=== PATIENT | female | born 1980 | race African-American/Black ===

== ENCOUNTER 2024-07-26 12:45 | Outpatient (CLI) | payer OTHER, SELFPAY ==
--- NOTE | 2024-07-26 13:00 | ECG_ITS ---
Test Date: 2024-07-26 13:03:51 Measurements Intervals [place] Rate: 95 P: 44 RI: 170 QRS: 9 QRSD: 90 T: 47 QT: 335 QTc: 421 Interpretive Statements SINUS RHYTHM BORDERLINE R WAVE PROGRESSION, ANTERIOR LEADS CONSIDER INFERIOR INFARCT, AGE INDETERMINATE BASELINE ARTIFACT- I, II, III, AVR, AVL, AVF ABNORMAL ECG No previous ECG available for comparison Electronically Signed On 07-26-2024 13:15:15 CORPORATE COMPLIANCE DIRECTOR by Quinton Arshad D.O.
--- OUTSIDE RECORDS SUMMARY | 2024-07-26 13:00 | XMS_ITS | Patient Health Summary ---
Author Organization [facility] Address [address] [place] [address] Care Team Providers Care Electronics Engineering Manager Name Role Phone Mel Cohen MD Primary Care Provider [phone] Note from [facility],non-owned Affiliates and Associated Physician Practices is amultiple site organization consisting of ambulatory clinics and hospital sitesin [place], [place]. This disclosure is being madepursuant to the Care Everywhere program and may not contain all information available regarding this patient. Last updated 18.[facility] Allergies No known active allergies Medications * Be aware that medications may not be up to date on this document. Alwaysverify current medications with the patient. * ferrous sulfate 325 (65 FE) MG tablet Take 1 (one) tablet by mouth once daily * ARIPiprazole (Abilify) 5 MG tablet Take 1 (one) tablet by mouth once daily * atorvastatin (Lipitor) 20 MG tablet Take 1 (one) tablet by mouth at bedtime * amLODIPine-benazepril (Lotrel) 10-20 MG capsule Take 1 (one) capsule by mouth once daily * montelukast (Singulair) 10 MG tablet Take 1 (one) tablet by mouth at bedtime * metFORMIN (Glucophage) 500 MG tablet Take 1 (one) tablet by mouth 2 times daily with morning and evening meal Social History Tobacco Use Types Packs/Day Years Used Date Smoking Tobacco: Never Smokeless Tobacco: Never Tobacco Cessation:Counseling Given: Not Answered Alcohol Use Standard Drinks/Week Comments Not Currently 0 (1 standard drink = 0.6 oz pur e alcohol) Sex and Gender Information Value Date Recorded Sex Assigned at Not on file Gender Identity Not on file Sexual Orientation Not on file Last Filed Vital Signs Vital Sign Reading Time Taken Comments Blood Pressure 145/102 06/24/2024 11:30 AM GALLERY OR MUSEUM GUIDE Pulse 83 06/24/2024 11:30 AM GALLERY OR MUSEUM GUIDE Temperature 37 C (98.6 F) 06/24/2024 9:55 AM GALLERY OR MUSEUM GUIDE Respiratory Rate 23 06/24/2024 11:30 AM GALLERY OR MUSEUM GUIDE Oxygen Saturation 97% 06/24/2024 11:30 AM GALLERY OR MUSEUM GUIDE Inhaled Oxygen Concentration - - Weight 97.5 kg (215 lb) 06/24/2024 9:55 AM GALLERY OR MUSEUM GUIDE Height 157.5 cm (5' 2 ) 06/24/2024 9:55 AM GALLERY OR MUSEUM GUIDE Body Mass Index 39.32 06/24/2024 9:55 AM GALLERY OR MUSEUM GUIDE Procedures * HCG URINE QUAL POCT NOTIFICATION(Performed 06/24/2024) Performed for Preop examination * [place] COLONOSCOPY, DIAGNOSTIC(Performed 06/24/2024) Performed for Screen for colon cancer * HCG URINE QUALITATIVE - POCT (IP) INTERFACED(Performed 06/24/2024) * ENDOSCOPY, COLON, SCREENING(Performed 06/24/2024) Results * HCG URINE QUAL POCT NOTIFICATION (06/24/2024 11:00 AM GALLERY OR MUSEUM GUIDE) Comment Notification Label Only - See Separate Report 06/24/2024 11:00 AM GALLERY OR MUSEUM GUIDE [facility] Urine URINE / Unknown 9:42 AM GALLERY OR MUSEUM GUIDE Francisco Alvarado MD LAB - URINALYSIS ORD ERABLES Performing Organization Address City/[facility] Co de Phone Number [facility] [address] [place] [address] * HCG URINE QUALITATIVE - POCT (IP) INTERFACED (06/24/2024 9:47 AM GALLERY OR MUSEUM GUIDE) HCG Qual Urine Negative Negative 06/24/2024 9:53 AM GALLERY OR MUSEUM GUIDE [facility] Urine URINE / Unknown 06/24/2024 9 :47 AM GALLERY OR MUSEUM GUIDE 06/24/2024 9:53 AM GALLERY OR MUSEUM GUIDE Francisco Alvarado MD LAB - POINT OF CARE ORDERABLES [facility] [address] [place] [address] * Endoscopy, Colon, Screening (06/24/2024 7:46 AM GALLERY OR MUSEUM GUIDE) Report Endoscopy POC _ Patient Name: Erica Mora Procedure Date: 06/24/2024 7:46 AM Date of : 1980 Admit Type: Outpatient Age: 43 Gender: Female Ethnicity: Not or Race: Black or Attending MD: Francisco Alvarado MD, [id number] _ Procedure: Colonoscopy Indications: Screening for colorectal malignant neoplasm, This is the patient's first colonoscopy Providers: Francisco Alvarado MD (Doctor), Danica Rausch RN, Jazmyn Restrepo RN Referring MD: Mariagnel Lagos DO (Referring MD) Medicines: Monitored Anesthesia Care Complications: No immediate complications. Estimated blood loss: None. _ Estimated Blood Loss: Estimated blood loss: none. Procedure: After I obtained informed consent, the scope was passed under direct vision. Throughout the procedure, the patient's blood pressure, pulse, and oxygen saturations were monitored continuously. The Colonoscope was introduced through the anus and advanced to the terminal ileum. The colonoscopy was performed without difficulty. The patient tolerated the procedure well. The quality of the bowel preparation was excellent. The terminal ileum, ileocecal valve, appendiceal orifice, and rectum were photographed. Impression: - No specimens collected. Moderate Sedation: Moderate (conscious) sedation was personally administered by an anesthesia professional. The following parameters were monitored: oxygen saturation, heart rate, blood pressure, respiratory rate, EKG, adequacy of pulmonary ventilation, and response to care. Findings: The terminal ileum appeared normal. The entire examined colon appeared normal. _ Recommendation: - Patient has a contact number available for emergencies. The signs and symptoms of potential delayed complications were discussed with the patient. Return to normal activities tomorrow. Written discharge instructions were provided to the patient. - Resume previous diet. - Continue present medications. - Repeat colonoscopy in 10 years for screening purposes. Procedure Code(s): --- Professional --- 23677, Colonoscopy, flexible; diagnostic, including collection of specimen(s) by brushing or washing, when performed (separate procedure) --- Technical --- 12283, Colonoscopy, flexible; diagnostic, including collection of specimen(s) by brushing or washing, when performed (separate procedure) Diagnosis Code(s): --- Professional --- Z12.11, Encounter for screening for malignant neoplasm of colon --- Technical --- Z12.11, Encounter for screening for malignant neoplasm of colon CPT copyright 2020 [employer]. All rights reserved. The codes documented in this report are preliminary and upon optical worker review may be revised to meet current compliance requirements. Francisco Alvarado MD 06/24/2024 11:15:03 AM This report has been signed electronically. Number of Addenda: 0 Note Initiated On: 06/24/2024 7:46 AM [facility] 06/24/2024 7:46 AM GALLERY OR MUSEUM GUIDE Francisco Alvarado MD GI PROCEDURE ORDERAB LES [facility] Care Teams Electronics Engineering Manager Relationship Specialty Start Date End Date Mel Cohen MD [address] [place] [id number] PCP - General Family Medicine 08/02/12
--- OUTSIDE RECORDS SUMMARY | 2024-07-26 13:00 | XMS_ITS | Clinical Summary ---
Author Organization [facility] Address [address] [place] [address] Care Team Providers Care Licensed Massage Therapist Name Role Phone Mariangel Lagos DO Primary Care Provide r Allergies No known active allergies Medications ferrous sulfate 325 mg (65 mg of elemental iron) tabletIndicatio ns:Iron Deficiency Anemia Take 1 tablet (325 mg total) by mouth daily with breakfast Active amLODIPine (NORVASC) 10 mg tablet Take 1 tablet (10 mg total) by mouth every morning Active ARIPiprazole (ABILIFY) 5 mg tablet Take 1 tablet (5 mg total) by mouth daily Active atorvastatin (LIPITOR) 20 mg tablet Take 1 tablet (20 mg total) by mouth nightly Active albuterol HFA (PROVENTIL HFA,VENTOLIN HFA,PROAIR HFA) 90 mcg/actuation inhaler Inhale 2 puffs every 6 (six) hours as needed for wheezing or shortness of breath Active budesonide-form oteroL (SYMBICORT) 160-4.5 mcg/actuation inhaler Inhale 2 puffs 2 (two) times a day Rinse mouth with water after use. Do not swallow. 1 each 3 Active Additional Information Patient not taking.Reported on 08/25/2023 guaiFENesin ER (MUCINEX) 600 mg 12 hr tablet Take 1 tablet (600 mg total) by mouth 2 (two) times a day 60 tablet 11 3 Active Additional Information Patient not taking.Reported on 12/14/2023 montelukast (SINGULAIR) 10 mg tablet Take 1 tablet (10 mg total) by mouth nightly for 28 doses 28 tablet [address] (PROTONIX) 40 mg EC tabletIndicatio ns:Stress Ulcer Prophylaxis Take 1 tablet (40 mg total) by mouth daily 30 tablet 11 3 Active Additional Information Patient not taking.Reported on 08/25/2023 famotidine (PEPCID) 20 mg tabletIndicatio ns:Heartburn Prevention,Refl ux Esophagitis,gas troesophageal reflux disease Take 1 tablet (20 mg total) by mouth nightly as needed for heartburn 30 tablet 3 Active Additional Information Patient not taking.Reported on 12/14/2023 albuterol 2.5 mg /3 mL (0.083 %) nebulizer solution Take 3 mL (2.5 mg total) by nebulization every 6 (six) hours as needed for wheezing or shortness of breath 300 mL 3 3 Active Additional Information Patient not taking.Reported on 12/14/2023 [employer] Aerosol Delivery System device as directed 3 Active predniSONE (DELTASONE) 20 mg tablet 3 Active metFORMIN (GLUCOPHAGE) 500 mg tablet Take 1 tablet (500 mg total) by mouth Active Active Problems Patient Care Coordination No te Formatting of this note migh t be different from the original. c Problem Noted Date Diagnosed Date Obstructive sleep apnea 08/25/2023 Assessment & Plan (06/28/2024 10:42 AM REPAIRER SWITCHGEAR): Patient continue to wear CPAP in auto titrating range 5-13 cm water pressure while sleeping. Her DME is [facility] home care. I have sent an order over for new CPAP supplies. Assessment & Plan (12/27/2023 9:12 AM CDT): Due to continued symptoms, the patient will continue with CPAP at 5-13 cm water pressure. The patient recently received her supplies and is going to resume CPAP therapy tonight. DME [facility] Assessment & Plan (08/25/2023 9:25 AM CDT): Due to the patient having mask leaks I will change the patient's CPAP pressure to 513 cm water pressure. Patient's DME is [facility] home care. Exacerbation of asthma 04/25/2023 Lactic acidosis 04/25/2023 Syncope 01/31/2019 Resolved Problems Problem Noted Date Diagnosed Date Resolved Date Snoring 05/26/2023 08/25/2023 Assessment & Plan (05/26/2023 9:24 AM REPAIRER SWITCHGEAR): The patient presents with snoring and daytime hypersomnia. I have recommended proceeding with a nocturnal polysomnogram with a split night protocol if necessary and no MSLT. She will follow up here in 3 months. Encounters Date Type Department Care Team Description 06/28/2024 10:30 AM REPAIRER SWITCHGEAR Office Visit [facility] Pulmonology [address] [place] [id number] Sweetie Chaves NP Obstructive sleep apnea (Primary Dx) from Last 3 Months Surgical History Surgery Date Site/Laterality Comments SECTION TUBAL LIGATION COLONOSCOPY 06/24/2024 Medical History Medical History Date Comments Asthma Obesity Hypertension SHERIDAN (nonalcoholic steatohepatitis) Bipolar 1 disorder (HCC) Anemia RA (rheumatoid arthritis) (HCC) Social History Tobacco Use Types Packs/Day Years Used Date Smoking Tobacco: Never Smokeless Tobacco: Never Tobacco Cessation:Counseling Given: Not Answered Alcohol Use Standard Drinks/Week Comments Defer 0 (1 standard drink = 0.6 oz pur e alcohol) [facility] Utilities Answer Date Recorded In the past 12 months has e electric, gas, oil, or water [employer] threatened to shut off services in your home? No 04/28/2023 Social Connection and Isolat ion Panel [NHANES] Answer Date Recorded In a typical week, how many times do you talk on the phone with family, friends, or neighbors? More than three times a week 04/28/2023 How often do you get togethe r with friends or relatives? More than three times a week 04/28/2023 How often do you attend chur ch or anabaptism services? More than 4 times per year 04/28/2023 Do you belong to any clubs o r organizations such as muslim groups, unions, fraternal or athletic groups, or school groups? Patient declined 04/28/2023 How often do you attend meet ings of the clubs or organizations you belong to? Patient declined 04/28/2023 Are you , , di vorced, , never , or living with a partner? 04/28/2023 AUDIT-C Answer Date Recorded Q1: How often do you have a drink containing alcohol? Never 04/25/2023 Q2: How many drinks containi ng alcohol do you have on a typical day when you are drinking? Patient does not drink Q3: How often do you have si x or more drinks on one occasion? Never 04/25/2023 Overall Financial Resource Strain (CARDIA) Answe r Date Recorded How hard is it for you to pa y for the very basics like food, housing, medical care, and heating? Not hard at all 04/28/2023 Hunger Vital Sign Answer Date Recorded Within the past 12 months, y ou worried that your food would run out before you got the money to buy more. Never true 04/28/20 23 Within the past 12 months, t he food you bought just didn't last and you didn't have money to get more. Never true 04/28/2023 PRAPARE - Transportation Answer Date Re corded In the past 12 months, has l ack of transportation kept you from medical appointments or from getting medications? No 04/06 In the past 12 months, has l ack of transportation kept you from meetings, work, or from getting things needed for daily living? No 04/28/2023 Housing Stability Vital Sign Answer Anand e Recorded In the last 12 months, was t here a time when you were not able to pay the mortgage or rent on time? No 04/28/2023 In the last 12 months, how many places have you lived? 1 04/28/2023 In the last 12 months, was t here a time when you did not have a steady place to sleep or slept in a chcf (including now)? No 04/28/2023 Personal Safety Answer Date Recorded Have you ever been in or are you currently in a harmful physical or emotional relationship or is someone making you feel afraid or unsafe? Denies 04/25/2023 Comments No Sex and Gender Information Value Date Recorded Sex Assigned at Not on file Legal Sex Female 1:42 AM REPAIRER SWITCHGEAR Gender Identity Female 04/25/2023 2:56 AM REPAIRER SWITCHGEAR Sexual Orientation Not on file Obstetrics History Last Filed Vital Signs Vital Sign Reading Time Taken Comments Blood Pressure 136/87 06/28/2024 10:27 AM REPAIRER SWITCHGEAR Pulse 90 06/28/2024 10:27 AM REPAIRER SWITCHGEAR Temperature 37 C (98.6 F) 12/14/2023 11:03 AM CDT Respiratory Rate 18 06/28/2024 10:27 AM REPAIRER SWITCHGEAR Oxygen Saturation 98% 06/28/2024 10:27 AM REPAIRER SWITCHGEAR Inhaled Oxygen Concentration - - Weight 101.2 kg (223 lb) 06/28/2024 10:27 AM REPAIRER SWITCHGEAR Height 158.8 cm (5' 2.5 ) 06/28/2024 10:27 AM CS T Body Mass Index 40.14 06/28/2024 10:27 AM REPAIRER SWITCHGEAR Plan of Treatment Health Maintenance Due Date Last Done Comments Cervical Cancer Screening 1980 Colon Cancer Screening-Colonoscopy 1980 Depression Screening 1980 Hepatitis C Screening 1978 DTaP/Tdap/Td Vaccine (1 - Tdap) 1989 Hepatitis B Screening 1996 Regular Well Visit/Exam 18-64 1996 Breast Cancer Screening-Mammogram 05/27/2025 05/27/2024, 05/27/2024, 01/28/2023, Additional history exists Pneumococcal vaccine <65 Completed 05/19/2023 Influenza Vaccine Completed 03/20/2024, , 05/19/2023, Additional history exists HPV Vaccines Aged Out No longer eligi ble based on patient's age to complete this topic Insurance [facility] CHOICE PLUS Advance Directives For more information, please contact: [phone] * Full Code (Latest Code Status on File) Date Activated Date Inactivated Comments 04/25/2023 8:53 AM 04/28/2023 3:43 PM Care Teams Licensed Massage Therapist Relationship Specialty Start Date End Date Mariangel Lagos DO [address] [place] [id number] PCP - General Interventional Cardiology 06/13/23
--- OUTSIDE RECORDS SUMMARY | 2024-07-26 13:00 | XMS_ITS | Encounter Summary ---
Author Organization [employer] Address [address] [place] [address] Care Team Providers Care Can Reconditioner Name Role Phone Unavailable Primary Care Provider Unavailabl e Encounter Details Date Type Department Care Team (Late st Contact Info) Description 12/13/2002 Outpatient Historical [facility] John Welch MD NO ADDRESS ON FILE Social History Tobacco Use Types Packs/Day Years Used Date Smoking Tobacco: Never Assessed Comments Unknown Sex and Gender Information Value Date Recorded Sex Assigned at Not on file Legal Sex Female 5:20 AM TRAFFIC POLICE OFFICER Gender Identity Not on file Sexual Orientation Not on file documented as of this encounter Plan of Treatment Not on file documented as of this encounter Visit Diagnoses Not on filedocumented in this encounter
--- OUTSIDE RECORDS SUMMARY | 2024-07-26 13:00 | XMS_ITS | Encounter Summary ---
Author Organization [employer] Address [address] [place] [address] Care Team Providers Care Candy Supervisor Name Role Phone Unavailable Primary Care Provider Unavailabl e Encounter Details Date Type Department Care Team (Latest Contact Info) Description 01/07/2003 Inpatient Historical [facility] PATIENT IN A BED John Lema MD NO ADDRESS ON FILE ABNL HEART RATE/RHYTHM,DELIV (Primary Dx) Social History Tobacco Use Types Packs/Day Years Used Date Smoking Tobacco: Never Assessed Comments Unknown Sex and Gender Information Value Date Recorded Sex Assigned at Not on file Legal Sex Female 5:20 AM SCORER SINGLE Gender Identity Not on file Sexual Orientation Not on file documented as of this encounter Plan of Treatment Not on file documented as of this encounter Visit Diagnoses Diagnosis Abnormality in heart rate/rhythm, delivered, with or without mention of antepartum condition- Primary documented in this encounter
--- OUTSIDE RECORDS SUMMARY | 2024-07-26 13:00 | XMS_ITS | Encounter Summary ---
Author Organization [employer] Address [address] [place] [address] Care Team Providers Care Bridge Inspector Name Role Phone Unavailable Primary Care Provider Unavailabl e Encounter Details Date Type Department Care Team (Late st Contact Info) Description 10/11/2002 Outpatient Historical [facility] John Welch MD NO ADDRESS ON FILE Social History Tobacco Use Types Packs/Day Years Used Date Smoking Tobacco: Never Assessed Comments Unknown Sex and Gender Information Value Date Recorded Sex Assigned at Not on file Legal Sex Female 5:20 AM SECRET SERVICE AGENT Gender Identity Not on file Sexual Orientation Not on file documented as of this encounter Plan of Treatment Not on file documented as of this encounter Visit Diagnoses Not on filedocumented in this encounter
--- OUTSIDE RECORDS SUMMARY | 2024-07-26 13:00 | XMS_ITS | Encounter Summary ---
Author Organization [employer] Address [address] [place] [address] Care Team Providers Care Window Clerk Name Role Phone Unavailable Primary Care Provider Unavailabl e Encounter Details Date Type Department Care Team (Late st Contact Info) Description 10/21/2002 Outpatient Historical [facility] John Lema MD NO ADDRESS ON FILE Social History Tobacco Use Types Packs/Day Years Used Date Smoking Tobacco: Never Assessed Comments Unknown Sex and Gender Information Value Date Recorded Sex Assigned at Not on file Legal Sex Female 5:20 AM WOOD GANG SAWYER Gender Identity Not on file Sexual Orientation Not on file documented as of this encounter Plan of Treatment Not on file documented as of this encounter Visit Diagnoses Not on filedocumented in this encounter
--- OUTSIDE RECORDS SUMMARY | 2024-07-26 13:00 | XMS_ITS | Encounter Summary ---
Author Organization [employer] Address [address] [place] [address] Care Team Providers Care Commercial Leasing Manager Name Role Phone Unavailable Primary Care Provider Unavailabl e Encounter Details Date Type Department Care Team (Late st Contact Info) Description 02/10/2003 Outpatient Historical [facility] John Welch MD NO ADDRESS ON FILE Social History Tobacco Use Types Packs/Day Years Used Date Smoking Tobacco: Never Assessed Comments Unknown Sex and Gender Information Value Date Recorded Sex Assigned at Not on file Legal Sex Female 5:20 AM BANANA LOADER Gender Identity Not on file Sexual Orientation Not on file documented as of this encounter Plan of Treatment Not on file documented as of this encounter Visit Diagnoses Not on filedocumented in this encounter
--- OUTSIDE RECORDS SUMMARY | 2024-07-26 13:00 | XMS_ITS | Encounter Summary ---
Author Organization [employer] Address [address] [place] [address] Care Team Providers Care Touch Up Worker Name Role Phone Unavailable Primary Care Provider Unavailabl e Encounter Details Date Type Department Care Team (Late st Contact Info) Description 01/12/2003 Outpatient Historical [facility] John Welch MD NO ADDRESS ON FILE Social History Tobacco Use Types Packs/Day Years Used Date Smoking Tobacco: Never Assessed Comments Unknown Sex and Gender Information Value Date Recorded Sex Assigned at Not on file Legal Sex Female 5:20 AM SENIOR BUYER PLANNER Gender Identity Not on file Sexual Orientation Not on file documented as of this encounter Plan of Treatment Not on file documented as of this encounter Visit Diagnoses Not on filedocumented in this encounter
--- OUTSIDE RECORDS SUMMARY | 2024-07-26 13:00 | XMS_ITS | Encounter Summary ---
Author Organization [employer] Address [address] [place] [address] Care Team Providers Care Commercial Analyst Name Role Phone Unavailable Primary Care Provider Unavailabl e Encounter Details Date Type Department Care Team (Late st Contact Info) Description 01/08/2003 Outpatient Historical [facility] John Welch MD NO ADDRESS ON FILE Social History Tobacco Use Types Packs/Day Years Used Date Smoking Tobacco: Never Assessed Comments Unknown Sex and Gender Information Value Date Recorded Sex Assigned at Not on file Legal Sex Female 5:[address]GE Gender Identity Not on file Sexual Orientation Not on file documented as of this encounter Plan of Treatment Not on file documented as of this encounter Visit Diagnoses Not on filedocumented in this encounter
--- OUTSIDE RECORDS SUMMARY | 2024-07-26 13:00 | XMS_ITS | Referral Summary ---
Author Organization [facility] Address [address] [place] [address] Care Team Providers Care Belt Builder Name Role Phone DemondJoyce chesterine Sarahy Primary Care Provide r Encounters Date Type Department Care Team Description 06/28/2024 10:30 AM COMB MACHINE OPERATOR Office Visit [facility] Pulmon[facility] [address] [place] [address] Sweetie Chaves NP Obstructive sleep apnea (Primary Dx) from Last 3 Months Allergies No known active allergies Medications ferrous [...] 08/25/2023 Assessment & Plan (06/28/2024 10:42 AM COMB MACHINE OPERATOR): Patient continue to wear CPAP in auto titrating range 5-13 cm water pressure while sleeping. Her DME is [facility] home care. I have sent an order over for new CPAP supplies. Assessment & Plan (12/27/2023 9:12 AM CDT): Due to continued symptoms, the patient will continue with CPAP at 5-13 cm water pressure. The patient recently received her supplies and is going to resume CPAP therapy tonight. DME [facility] Assessment & Plan (08/25/2023 9:25 AM CDT): Due to the patient having mask leaks I will change the patient's CPAP pressure to 513 cm water pressure. Patient's DME is [facility] home care. Exacerbation of asthma 04/25/2023 Lactic acidosis 04/25/2023 Syncope 01/31/2019 Resolved Problems Problem Noted Date Diagnosed Date Resolved Date Snoring 05/26/2023 08/25/2023 Assessment & Plan (05/26/2023 9:24 AM COMB MACHINE OPERATOR): The patient presents with snoring and daytime hypersomnia. I have recommended proceeding with a nocturnal polysomnogram with a split night protocol if necessary and no MSLT. She will follow up here in 3 months. Social History Tobacco Use Types Packs/Day Years Used Date Smoking Tobacco: Never Smokeless Tobacco: Never Tobacco Cessation:Counseling Given: Not Answered Alcohol Use Standard Drinks/Week Comments Defer 0 (1 standard drink = 0.6 oz pur e alcohol) [facility] Utilities Answer Date Recorded In the past 12 months has [employer], gas, oil, or water company threatened to shut off services in your [...] week 04/28/2023 How often do you attend [facility] or restorationism services? More than 4 times per year 04/28/2023 Do you belong to any clubs o r organizations such as adventist groups, unions, fraternal or athletic groups, or [...] you are drinking? Patient does not drink 3 Q3: How often do you have si [...] place to sleep or slept in a [place] [facility] [place] facility (including now)? No 04/28/2023 Personal Safety Answer Date Recorded Have you ever been in or are you currently in a harmful physical or emotional relationship or is someone making you feel afraid or unsafe? Denies 04/25/2023 Comments No Sex and Gender Information Value Date Recorded Sex Assigned at Not on file Legal Sex Female 1:42 AM COMB MACHINE OPERATOR Gender Identity Female 04/25/2023 2:56 AM COMB MACHINE OPERATOR Sexual Orientation Not on file Last Filed Vital Signs Vital Sign Reading Time Taken Comments Blood Pressure 136/87 06/28/2024 10:27 AM COMB MACHINE OPERATOR Pulse 90 06/28/2024 10:27 AM COMB MACHINE OPERATOR Temperature 37 C (98.6 F) 12/14/2023 11:03 AM CDT Respiratory Rate 18 06/28/2024 10:27 AM COMB MACHINE OPERATOR Oxygen Saturation 98% 06/28/2024 10:27 AM COMB MACHINE OPERATOR Inhaled Oxygen Concentration - - Weight 101.2 kg (223 lb) 06/28/2024 10:27 AM COMB MACHINE OPERATOR Height 158.8 cm (5' 2.5 ) 06/28/2024 10:27 AM CS T Body Mass Index 40.14 06/28/2024 10:27 AM COMB MACHINE OPERATOR Plan of Treatment Not on file Insurance [facility] [employer] Advance Directives For more information, please contact: [phone] * Full Code (Latest Code Status on File) Date Activated Date Inactivated Comments 04/25/2023 8:53 AM 04/28/2023 3:43 PM Care Teams Belt Builder Relationship Specialty Start Date End Date Mariangel Lagos DO [address] [address] PCP - General Interventional Cardiology 06/13/23
--- OUTSIDE RECORDS SUMMARY | 2024-07-26 13:00 | XMS_ITS | Encounter Summary ---
Author Organization [employer] Address [address] [place] [address] Care Team Providers Care Millroom Supervisor Name Role Phone Unavailable Primary Care Provider Unavailabl e Encounter Details Date Type Department Care Team (Late st Contact Info) Description 01/03/2003 Outpatient Historical [facility] John Welch MD NO ADDRESS ON FILE Social History Tobacco Use Types Packs/Day Years Used Date Smoking Tobacco: Never Assessed Comments Unknown Sex and Gender Information Value Date Recorded Sex Assigned at Not on file Legal Sex Female 5:20 AM RN BABY Gender Identity Not on file Sexual Orientation Not on file documented as of this encounter Plan of Treatment Not on file documented as of this encounter Visit Diagnoses Not on filedocumented in this encounter
--- OUTSIDE RECORDS SUMMARY | 2024-07-26 13:00 | XMS_ITS | Encounter Summary ---
Author Organization [employer] Address 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
--- OUTSIDE RECORDS SUMMARY | 2024-07-26 13:00 | XMS_ITS | Encounter Summary ---
Author Organization [employer] Address [address] [place] [address] Care Team Providers Care Chemistry Manager Name Role Phone Unavailable Primary Care Provider Unavailabl e Encounter Details Date Type Department Care Team (Late st Contact Info) Description 09/10/2002 Outpatient Historical [facility] John Welch MD NO ADDRESS ON FILE Social History Tobacco Use Types Packs/Day Years Used Date Smoking Tobacco: Never Assessed Comments Unknown Sex and Gender Information Value Date Recorded Sex Assigned at Not on file Legal Sex Female 5:20 AM PIPELAYING FITTER Gender Identity Not on file Sexual Orientation Not on file documented as of this encounter Plan of Treatment Not on file documented as of this encounter Visit Diagnoses Not on filedocumented in this encounter
--- OUTSIDE RECORDS SUMMARY | 2024-07-26 13:00 | XMS_ITS | Encounter Summary ---
Author Organization [employer] Address [address] [place] [address] Care Team Providers Care Personnel Security Assistant Name Role Phone Unavailable Primary Care Provider Unavailabl e Encounter Details Date Type Department Care Team (Late st Contact Info) Description 12/26/2002 Outpatient Historical [facility] John Welch MD NO ADDRESS ON FILE Social History Tobacco Use Types Packs/Day Years Used Date Smoking Tobacco: Never Assessed Comments Unknown Sex and Gender Information Value Date Recorded Sex Assigned at Not on file Legal Sex Female 5:20 AM MICROFICHE CAMERA OPERATOR Gender Identity Not on file Sexual Orientation Not on file documented as of this encounter Plan of Treatment Not on file documented as of this encounter Visit Diagnoses Not on filedocumented in this encounter
--- OUTSIDE RECORDS SUMMARY | 2024-07-26 13:00 | XMS_ITS | Data Portability ---
Author Organization [facility] [place] Address [address] [place] [address] [place] [address] Care Team Providers Care Physician Assistant Surgery Name Role Phone LONI ELISE Primary Care Provider Assessment No assessment recorded. Plan of Treatment Reminders Order Date Submit Date Provider Last Modified By Organization Details Last Modified Time Details Appointments SURG Total Lap Hyst 2024 07:30A Lisa MALONE MD Not available Not available Not available SURG POST OP 2024 01:00P Lisa MALONE MD Not available Not available Not available SURG POST OP 2024 01:00P Lisa MALONE MD Not available Not available Not available Lab None recorded. Referral None recorded. Procedures None recorded. Surgeries total hysterect kelsey, laparosco pic, with bilateral salpingec marcus (SURG) 2023 025 [id number] [facility], [address] [place] [address], [address], 06/18/2024 13:33:27 cystoscop y (SURG) 2023 025 [id number] [facility], [address] [place] [address], [address], 06/12/2024 12:46:27 Imaging US, pelvis 2023 024 [email or web address] [place], [address], [address], [place], [address], 08/04/2023 19:48:45 US, transvagi nal 2023 024 [email or web address] [place], [address], [address], [place], [address], 08/04/2023 19:48:45 Medication Orders None recorded. Patient TargetsNo targets recorded. Patient InstructionsNo instructions recorded. Reason for Referral None Reported. Results Created Date Observation Date Name Description Value Unit Range Abnormal Flag Note LastModifiedBy Organization Detail LastModifiedTime 07/21/19 24 07/21/2023 IMAGE GUIDE D PAP AND HPV REGAR DLESS image guided Pap, HPV regardless of Pap result SEE RESULT S BELOW CASE REPOR T: Cytol ogy Gynec ologi mili Repor t Case: [id number] Autho karen kian Provi francesca: Vashti Mendoza NP Colle cted: 07/21 1359 Order ing Locat ion: [place] Path[facility] log[facility] Recei tommie: 07/24 0957 First Scree n: Salina Reyes , CT Rescr een: Анна Mays, CT Speci men: Screnisha rodgersg Pap - Image d, Cervi x STATE MENT OF ADEQU ACY: Satis facto ry for evalu ation Trans forma tion zone compo nent absen t The absen ce of an endoc ervic al compo nent was confi rmed by an addit ional toyin ner. FINAL DIAGN OSIS: Negat teresa for Intra epith elial Brent rose or Po parra (NIL) . Elect marielena siddiqi d by Анна Mays, CT on 2023 at 6:57 AM ----- ----- ----- ----- ----- ----- ----- ----- ----- ----- ----- ----- ----- ----- ----- ----- ----- ---- HPV RESUL TS: HPV mRNA E6/E7 : No HPV mRNA Detec beryl NOTE: This high risk HPV mRNA assay detec ts fourt een high- risk HPV types (16, 18, 31, 33, 35, 39, 45, 51, 52, 56, 58, 59, 66, 68) witho ut diffe renti ation . COMME NT: This speci men was revie wed by a Cytot echno logis t and/o r Patho logis t (as indic ated in this repor t) after evalu ation using the Thinp rep Imagi ng Syste m. CLINI MILI INFOR MATIO N: Menst rual Statu s: LMP (if appli cable ): Clini mili Histo ry/Pr eviou s Pap: Type of Neopl alayna (if appli cable ): Signi fican t Clini mili Findi ngs: Other Histo ry: Hormo humera (if appli cable ): PAP EDUCA YOJANA L NOTE: The Pap Test is a scree harriet test with an inher ent false negat teresa rate. Liqui d-bas ed sampl ing may decre ase, but will not elimi bonita, false negat teresa resul ts. A negat teresa resul t does not precl ude the prese nce and/o r devel opmen t of disea se, since the prese nce of abnor mal cells in the sampl e depen ds on the locat ion of the lesio n and sampl ing techn ique. Armando nued regul ar scree harriet is the best metho d of cance r preve ntion . If repor beryl cytol ogic findi ng do not corre late with physi mili and/o r histo rical findi ngs, furth er inves tigat ion is recom sven d, as clini abrahan warra nted. Not Available [facility] (Lab) [address], [place], [address], 07/28/2023 08:01:02 07/21/19 24 07/21/2023 TRICH OMONA S VAGIN KRISTY (RRNA ) trichomonas vaginalis ribosomal RNA (rrna) Negati ve negati ve Not Available [facility] (Lab) [address], [place], [address], 07/28/2023 08:01:03 07/21/19 24 07/21/2023 CT/GC (URSULA) , THINP REP VIAL chlamydia trachomatis, PCR Negati ve negati ve Not Available [facility] (Lab) [address], [place], [address], 07/28/2023 08:01:03 07/21/19 24 07/21/2023 CT/GC (URSULA) , THINP REP VIAL neisseria gonorrhoeae, PCR Negati ve negati ve Not Available [facility] (Lab) [address], [place], [address], 07/28/2023 08:01:03 08/04/19 24 08/04/2023 US, pelvi s No observ ation record ed. [facility] [address], [place], [address], 08/04/2023 18:01:49 08/04/19 24 08/04/2023 US, trans vagin al No observ ation record ed. [facility] [address], [place], [address], 08/04/2023 18:02:12 08/04/19 24 08/04/2023 US, pelvi s No observ ation record ed. [facility] Dawson [address], [place], [address], 08/14/2023 11:42:23 Result Notes None recorded. Procedures Surgical History Date Name Laterality Status Provider Name and Address Organization Details Recorded Time 4 Date of Last Pap Smear completed [facility] 08/11/2023 09:56:22 3 Date of Last Mammogram completed [facility] 07/21/2023 10:13:27 4 Tub[address] L[address] completed [facility] 08/11/2023 09:56:03 3 Caesarean Section completed Reina Perrin [facility] 07/21/2023 10:13:47 Imaging Results Imaging Date Name Status LastModified by Organization Details LastModified Time 08/04/2023 US, pelvis completed [facility] [address], [place], [address], 08/04/2023 18:01:49 08/04/2023 US, transvaginal completed [facility] [address], [place], [address], 08/04/2023 18:02:12 08/04/2023 US, pelvis completed GLADIS Eunice [address], [place], [address], 08/14/2023 11:42:23 Procedure Notes None recorded. Medical Equipment None Reported. Allergies No known drug allergies Medications Name Sig Start Date Stop Date Status Note LastModified by Organization Details LastModified Time fluticasone 250 mcg-salmete rol 50 mcg/dose blistr powdr for inhalation INHALE 1 PUFF BY MOUTH EVERY 12 HOURS IN THE MORNING AND EVENING active Not Available Not Available No t Available prednisone 10 mg tablet 07/21 completed Not Available Not Available Not Available atorvastati n 20 mg tablet TAKE 1 TABLET BY MOUTH EVERY DAY active Not Available Not Available No t Available albuterol sulfate 2.5 mg/3 mL (0.083 %) solution for nebulizatio n TAKE 3 ML BY NEBULIZAT ION EVERY 6 HOURS NEEDED FOR WHEEZING OR SHORTNESS OF BREATH active Not Available Not Available No t Available atorvastati n 10 mg tablet Take 1 tablet every day by oral route. 07/21 completed Not Available Not Available Not Available Iron (ferrous sulfate) 325 mg (65 mg iron) tablet 1 tablet every day by oral route. active Not Available Not Available No t Available prednisone 20 mg tablet 07/21 completed Not Available Not Available Not Available amlodipine 5 mg tablet Take 5 mg every day by oral route. 07/21 completed Not Available Not Available Not Available famotidine 20 mg tablet 07/21 completed Not Available Not Available Not Available amlodipine 10 mg tablet TAKE 1 TABLET BY MOUTH EVERY DAY active Not Available Not Available No t Available pantoprazol e 40 mg tablet,amie yed release 07/31 completed Not Available Not Available Not Available montelukast 10 mg tablet TAKE 1 TABLET BY MOUTH EVERY DAY IN THE EVENING active Not Available Not Available No t Available albuterol sulfate HFA 90 mcg/actuati on aerosol inhaler INHALE 2 PUFFS BY MOUTH EVERY 4 TO 6 HOURS NEEDED active Not Available Not Available No t Available aripiprazol e 5 mg tablet TAKE 1 TABLET BY MOUTH EVERY DAY active Not Available Not Available No t Available Symbicort 160 mcg-4.5 mcg/actuati on HFA aerosol inhaler INHALE 2 PUFFS BY MOUTH TWICE DAILY. RINSE MOUTH WITH WATER AFTER USE. DO NOT SWALLOW 07/21 completed Not Available Not Available Not Available Vios Aerosol Delivery System DIRECTED 07/21 completed Not Available Not Available Not Available guaifenesin ER 600 mg tablet, extended release 12 hr TAKE 1 TABLET BY MOUTH TWICE DAILY 07/21 completed Not Available Not Available Not Available Vitals Date Recorded Body height Body mass index (BMI) Body weight Systolic blood pressure Diastolic blood pressure Systolic blood pressure Diastolic blood pressure Provider Name and Address Organization Details Last Updated DateTime 4 157.48 cm 39.3 kg/m2 20898.3 6 g 151 mm[Hg] 90 mm[Hg] 137 mm[Hg] 87 mm[Hg] [facility] 4 10:44:40 Date Recorded Body height Body mass index (BMI) Body weight Systolic blood pressure Diastolic blood pressure Systolic blood pressure Diastolic blood pressure Provider Name and Address Organization Details Last Updated DateTime 4 157.48 cm 39.1 kg/m2 62088.7 7 g 148 mm[Hg] 84 mm[Hg] 136 mm[Hg] 82 mm[Hg] [facility] 4 10:36:02 Date Recorded Body height Body mass index (BMI) Body weight Systolic blood pressure Diastolic blood pressure Provider Name and Address Organization Details Last Updated DateTime 04/12/2024 157.48 cm 40.8 kg/m2 390421.1 g 148 mm[Hg] 89 mm[Hg] Ana Cook [facility] 14:19:10 Social History Question Answer Notes LastModified by Organizat ion Details LastModified Time Tobacco Smoking Status Former Smoker Reina Perrin null, [facility] 07/21/2023 10:18:04 Do You Have An Advance Directive? No Information not available 07/21/2023 What Is Your Level Of Alcohol Consumption? Occasional Information not available 07/21/2023 How Many Years Have You Consumed Alcohol? 16 Information not available 07/21/2023 Are You Blind Or Do You Have Difficulty Seeing? No Information not available 07/21/2023 What Is Your Level Of Caffeine Consumption? Moderate Information not available 07/21/2023 How Much Tobacco Do You Chew? None Information not available 07/21/2023 In The 14 Days Before Symptom Onset, Have You Had Close Contact With A Laboratory-confir med COVID-19 While That Case Was Ill? No Information not available 07/21/2023 In The 14 Days Before Symptom Onset, Have You Had Close Contact With A Person Who Is Under Investigation For COVID-19 While That Person Was Ill? No Information not available 07/21/2023 Have You Been To An Area Known To Be High Risk For COVID-19? No Information not available 07/21/2023 Are You Deaf Or Do You Have Serious Difficulty Hearing? No Information not available 07/21/2023 What Type Of Diet Are You Following? REGULAR Information not available 07/21/2023 What Is The Highest Grade Or Level Of School You Have Completed Or The Highest Degree You Have Received? 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 No Information not available 07/21/2023 Do You Use Protection During Sex? Usually Information not available 07/21/2023 Do You Use Your Seat Belt Or Car Seat Routinely? Yes Information not available 07/21/2023 Are You Sexually Active? Yes Information not available 07/21/2023 Do You Have Smoke And Carbon Monoxide Detectors In Your Home? Yes Information not available 07/21/2023 At What Age Did You Start Smoking Tobacco? 14 Information not available 07/21/2023 How Much Tobacco Do You Smoke? No Information not available 07/21/2023 Do You Feel Stressed (tense, Restless, Nervous, Or Anxious, Or Unable To Sleep At Night)? [id number] Information not available 07/21/2023 Do You Use Any Illicit Or Recreational Drugs? Yes Information not available 07/21/2023 Do You Use Sunscreen Routinely? No Information not available 07/21/2023 How Many Years Have You Smoked Tobacco? 16 Information not available 07/21/2023 Have You Used IV Drugs? No Information not available 07/21/2023 Sex: Unknown Functional Status Question Answer Note LastModified by Organizat ion Details LastModified Time Do you have difficulty walking or climbing stairs? No Information not available 07/21/2023 Are you able to walk? YESWOREST Information not available 07/21/2023 Are you able to care for yourself? Yes Information not available 07/21/2023 Do you have difficulty dressing or bathing? No Information not available 07/21/2023 What is your exercise level? Occasional Information not available 07/21/2023 Mental Status None recorded. Family History Relationship Description Onset Age of this Age Resolved Age Notes LastModified by Organization Details LastModified Time Mother Asthma Not available 0 07/21/2023 10:13:16 Brother Diabetes mellitus 12 [email or web address] Not available 2023 14:08:17 Brother Diabetes mellitus Not available 2023 10:22:15 Medical History Condition Response Hepatitis/Liver Disease Y Arthritis Y Hypertension Y Asthma Y High Cholesterol Y Gynecological History Statement/Question Response Abnormal Pap N Flow Heavy Date of Last Mammogram 11/03/2022 Date of LMP 03/23/2024 N On BCP's at Conception? Y STIs/STDs N Was last menstrual period normal N HPV Vaccine N Duration of Flow (days) 3 Current Control Method Tubal Ligat ion Age at First Child 22 Are cycles usually normal Y Frequency of Cycle (Q days) 30 Sexually Active? Y Other Menses Monthly Y Age of first menstrual cycle 7 Date of Last Pap Smear 07/21/2023 Sexual Problems? N LMP Definite N Obstetrics History GPAL:G 2 P 2 0 0 2 Type Value Full Term 2 Living 2 Total 2 Past Encounters Encounter ID Performer Location Encounter Start Date Encounter Closed Date Diagnosis/Indication Diagnosis SNOMED-CT Code Diagnosis ICD10 Code Diagnosis Note [id number] MARK Aguiar [place] [address],[place] [address] 07/21/2023 09:50:13 07/21/2023 11:02:06 Dysmenorrhea 939165222 N94.6 Detailed health hx obtained and reviewed todaypap/S TI testing updatedpel bradly u/s orderedwil l return for f/u to review and discuss management options Time spent in visit is a total of 35 mins with at least 50% of visit consisting of counseling and review of plan of care. Venereal d isease screening 992225232 Z11.3 Screening for malignant neoplasm of cervix 925197487 Z12.4 [id number] [facility] [address],[place] [address] 08/04/2023 16:17:58 08/04/2023 16:55:39 Pain in pelvis 53423638 R10.2 [id number] MARK Aguiar [place] [address],[place] [address] 08/11/2023 10:17:27 08/11/2023 10:56:31 Uterine leiomyoma 29605664 D25.9 Reviewed updated u/s - fibroidsDi scussed fibroids in-depthwe discussed management options for painful periods (progester one methods vs MD consult for surgical options)sh e may be interested in Mirena IUDprecaut ions reviewed, questions answeredRT C for WWE or sooner if desired Time spent in visit is a total of 20 mins with at least 50% of visit consisting of counseling and review of plan of care. Dysmenorrhea [id number] N 94.6 [id number] DEBORAH MALONE MD [place] [address] [address] 04/12/2024 14:08:05 04/19/2024 03:35:38 Uterine leiomyoma 05911283 D25.9 - uterus enlarged with multiple leiomyoma- patient reports long history of heavy periods and pelvic pain- discussed medical management vs surgical management ; patient declines medical management - discussed surgical options including myomectomy vs hysterecto my; discussed that given multiple fibroids and heterogeno us uterus, myomectomy unlikely to be completely successful - recommend total laparoscop ic hysterecto my with bilateral salpingect kelsey and cystoscopy - discussed risks of surgery, including bleeding, infection, and injury to adjacent structures - patient voices understand ing, would like to proceed with surgery as discussed Health Concerns Section Related Observation LastModified by Organization Detai ls LastModified Time None Recorded Concern Status LastModified by Organization Details LastModified Time None Recorded Advance Directives Directive N: Payers Encounter Date Sequence Insurance Name Policy Number Policy Caban Covered Member ID Caban Member ID Guarantor Name 07/21/2023 1 [facility] [id number] [facility] 08/04/2023 1 [facility] [id number] [facility] 08/11/2023 1 [facility] [id number] [facility] 04/12/2024 1 [facility] [id number] [facility] Notes Date Note Type Note Provider Name and Address Organization Details Recorded Time 07/21/2023 text/html 42yo [id number] ents for painful periodsperiods painful for the past 1 yrmonthly periods, lasting 4-5 days, about 3 heavier days (changing pads every 2-3 hours)significant cramping during her periods, sometimes has left sided cramping outside of her periodsBTL for BC, SA with steady male partnernormal bowel movementsno urinary symptomsneg d/c, odors, itchinglast pap around 8 yrs ago, no h/o abnormal MARK Aguiar [address], [place], [address], [facility] 07/21/2023 10:58:36 08/11/2023 text/html 42yo [id number] ents for u/s f/u HPI:presents for painful periodsperiods painful for the past 1 yrmonthly periods, lasting 4-5 days, about 3 heavier days (changing pads every 2-3 hours)significant cramping during her periods, sometimes has left sided cramping outside of her periodsBTL for BC, SA with steady male partnernormal bowel movementsno urinary symptomsneg d/c, odors, itchingpap done 07/21/2023 - normalmammogram UTD MARK Aguiar [address], [place], [address], [facility] 08/11/2023 10:54:32 04/12/2024 text/html Patient presents for discussion of fibroid issues. She reports constant pelvic pain that worsens with menses. Pain is mostly on left lower quadrant. She also reports heavy periods, changing super tampon every hour. She had previously discussed medical vs surgical management and has decided taht she would like to pursue definitive surgical management with hysterectomy. DEBORAH MALONE MD [address], [place], [address], [facility] 04/18/2024 22:51:43 OBGyn Episode Ob Episode Information Episode Created Date Number of Fetuses Patient Bloodtype Patient rh Status Prepregnancy Weight lbs Domestic Partner Domestic Partner Phone Father Name Geriatric Nurse Status 07/21/19 24 1 CLOSED Fetus Data First Name Last Name Admitted to NICU Weight (g) Sex Living Outcome Pediatric Complications Fetus ID Race Codes Race Delivery Type 2267.96 M Full Term [id number] Miky Calculation Initial Miky Date Initial Exam Date Initial Exam Provider Initial Ultrasound Date Last Menstrual Period Date Ultra Sound Weeks Gestation 0 Eighteen To Twenty Week Miky Update Ultra Sound Date Fundal Height At Umbil Quickening Date Ultra Sound Latest Weeks Gestation Final Miky Confirmed By Final Miky Confirmed Date Final Miky Date Ultra Sound Latest Days Gestation 0 0 Menstrual History Last Menstrual Date Menses Monthly On Bcp Conception Prior Menses Frequency Hcg Plus Date Menarche Onset Age Delivery Information Delivery Date Delivery Type Labor Anesthesia Weeks Gestation Incision Type Labor Labor Length Hrs Delivered By Post Complications Tubal Sterilization Discharge Date Comments 2 vaginal Discharge Information Feeding Method Contraceptive Method Maternal HG B and HCT Levels Ob Episode Information Episode Created Date Number of Fetuses Patient Bloodtype Patient rh Status Prepregnancy Weight lbs Domestic Partner Domestic Partner Phone Father Name Geriatric Nurse Status 07/21/19 24 1 CLOSED Fetus Data First Name Last Name Admitted to NICU Weight (g) Sex Living Outcome Pediatric Complications Fetus ID Race Codes Race Delivery Type M Full Term [id number] Miky Calculation Initial Miky Date Initial Exam Date Initial Exam Provider Initial Ultrasound Date Last Menstrual Period Date Ultra Sound Weeks Gestation 0 Eighteen To Twenty Week Miky Update Ultra Sound Date Fundal Height At Umbil Quickening Date Ultra Sound Latest Weeks Gestation Final Miky Confirmed By Final Miky Confirmed Date Final Miky Date Ultra Sound Latest Days Gestation 0 0 Menstrual History Last Menstrual Date Menses Monthly On Bcp Conception Prior Menses Frequency Hcg Plus Date Menarche Onset Age Delivery Information Delivery Date Delivery Type Labor Anesthesia Weeks Gestation Incision Type Labor Labor Length Hrs Delivered By Post Complications Tubal Sterilization Discharge Date Comments 3 c/s Discharge Information Feeding Method Contraceptive Method Maternal HG B and HCT Levels
--- OUTSIDE RECORDS SUMMARY | 2024-07-26 13:00 | XMS_ITS | Encounter Summary ---
Author Organization [facility] Address 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
--- OUTSIDE RECORDS SUMMARY | 2024-07-26 13:00 | XMS_ITS | Encounter Summary ---
Author Organization [employer] Address 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
--- OUTSIDE RECORDS SUMMARY | 2024-07-26 13:00 | XMS_ITS | Encounter Summary ---
Author Organization [employer] Address [address] [place] [address] Care Team Providers Care Live In Companion Name Role Phone Unavailable Primary Care Provider Unavailabl e Encounter Details Date Type Department Care Team (Late st Contact Info) Description 01/07/2003 Outpatient Historical [facility] Maternal and Ground Floor S [facility] [address] [place] [address] José Gonzáles MD [address] [place] [address] Social History Tobacco Use Types Packs/Day Years Used Date Smoking Tobacco: Never Assessed Comments Unknown Sex and Gender Information Value Date Recorded Sex Assigned at Not on file 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
--- OUTSIDE RECORDS SUMMARY | 2024-07-26 13:00 | XMS_ITS | Encounter Summary ---
Author Organization [facility] Address 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
--- OUTSIDE RECORDS SUMMARY | 2024-07-26 13:00 | XMS_ITS | Clinical Summary ---
Author Organization [facility] Address [address] [place] [address] Care Team Providers Care Cigarette Making Examiner Name Role Phone Unavailable Primary Care Provider Unavailabl e Social History Tobacco Use Types Packs/Day Years Used Date Smoking Tobacco: Never Assessed Comments Unknown Sex and Gender Information Value Date Recorded Sex Assigned at Not on file Legal Sex Female 7:15 PM CDT Gender Identity Not on file Sexual Orientation Not on file Plan of Treatment Health Maintenance Due Date Last Done Comments Cervical Cancer Screening Pa p Smear (Age 30 to 64) Every 3 Years 1978 Colorectal Cancer Screening Colonoscopy (10 Years) 1978 Annual Physical 1981 Hepatitis C 1996 DTaP, Tdap and Td Vaccines ( 1 - Tdap) 1997 Hepatitis B Vaccines (1 of 3 - 19+ 3-dose series) 1997 Cervical Cancer Screening Pa p with HPV Testing (Age 30 to 64) Every 5 Years 2008 Cervical Cancer Screening with HPV 2008 Mammogram Screening 2018 COVID-19 Vaccine (2023-2 5 season) 2024 Influenza Adult (#1) 2024 HPV Vaccines Aged Out No longer eligi ble based on patient's age to complete this topic Meningococcal B Vaccine Aged Out No l onger eligible based on patient's age to complete this topic Meningococcal Vaccine Aged Out No luis m ronda eligible based on patient's age to complete this topic Pneumococcal Vaccine: Pediat rics (0 to 5 Years) and At-Risk Patients (6 to 64 Years) Aged Out No longer eligible b ased on patient's age to complete this topic RSV Immunizations Under 20 Months Aged Out No longer eligible based on patient's age to complete this topic
--- OUTSIDE RECORDS SUMMARY | 2024-07-26 13:00 | XMS_ITS | Encounter Summary ---
Author Organization [facility] Address 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
--- OUTSIDE RECORDS SUMMARY | 2024-07-26 13:00 | XMS_ITS | Referral Summary ---
Author Organization [facility] Address [address] [place] [address] Care Team Providers Care Supervisor Paint Roller Covers Name Role Phone Mel Cohen MD Primary Care Provider [phone] Source Comments [facility],non-owned Affiliates and Associated Physician Practices is amultiple site organization consisting of ambulatory clinics and hospital sitesin [place], [place], [place] and [place]. This disclosure is being madepursuant to the Care Everywhere program and may not contain all information available regarding this patient. Last updated 18.[facility] Encounters Date Type Department Care Team Description 06/24/2024 Travel 06/24/2024 10:49 AM CREDIT INVESTIGATOR Anesthesia Event [facility] - Endoscopy Services [address] [place] [address] Dio Santizo MD Will, Margaret H, APRN-STRAINER MILL OPERATOR 06/24/2024 10:00 AM CREDIT INVESTIGATOR - 06/24/2024 10:30 AM CREDIT INVESTIGATOR Surgery [facility] - Endoscopy Services [address] [place] [address] Francisco Alvarado MD COLONOSCOPY SCREEN 06/24/2024 9:01 AM CREDIT INVESTIGATOR - 06/24/2024 11:54 AM CREDIT INVESTIGATOR Hospital Encounter [facility] - Endoscopy Services [address] [place] [address] Francisco Alvarado MD Surgery General Discharge Disposition: Home or Self Care from Last 3 Months Allergies No known active allergies Medications * Be aware that medications may not be up to date on this document. Alwaysverify current medications with the patient. Medication Sig Dispensed Refills Start Date End Date Status ferrous sulfate 325 (65 FE) MG tablet Take 1 (one) tablet by mouth once daily Active ARIPiprazole (Abilify) 5 MG tablet Take 1 (one) tablet by mouth once daily Active atorvastatin (Lipitor) 20 MG tablet Take 1 (one) tablet by mouth at bedtime Active amLODIPine-benazepril (Lotrel) 10-20 MG capsule Take 1 (one) capsule by mouth once daily Active montelukast (Singulair) 10 MG tablet Take 1 (one) tablet by mouth at bedtime Active metFORMIN (Glucophage) 500 MG tablet Take 1 (one) tablet by mouth 2 times daily with morning and evening meal Active Social History Tobacco Use Types Packs/Day Years [...] Comments Blood Pressure 145/102 06/24/2024 11:30 AM CREDIT INVESTIGATOR Pulse 83 06/24/2024 11:30 AM CREDIT INVESTIGATOR Temperature 37 C (98.6 F) 06/24/2024 9:55 AM CREDIT INVESTIGATOR Respiratory Rate 23 06/24/2024 11:30 AM CREDIT INVESTIGATOR Oxygen Saturation 97% 06/24/2024 11:30 AM CREDIT INVESTIGATOR Inhaled Oxygen Concentration - - Weight 97.5 kg (215 lb) 06/24/2024 9:55 AM CREDIT INVESTIGATOR Height 157.5 cm (5' 2 ) 06/24/2024 9:55 AM CREDIT INVESTIGATOR Body Mass Index 39.32 06/24/2024 9:55 AM CREDIT INVESTIGATOR Plan of Treatment Not on file Procedures Procedure Name Priority Date/Time Associated Diagnosis Comments HCG URINE QUAL POCT NOTIFICATION Routine 06/24/2024 11:00 AM CREDIT INVESTIGATOR Preop examination CT COLONOSCOPY, DIAGNOSTIC 06/24/2024 10:00 AM CREDIT INVESTIGATOR Screen for colon cancer HCG URINE QUALITATIVE - POCT (IP) INTERFACED Routine 06/24/2024 9:47 AM CREDIT INVESTIGATOR ENDOSCOPY, COLON, SCREENING Routine 06/24/2024 7:46 AM CREDIT INVESTIGATOR from Last 3 Months Results * HCG URINE QUAL POCT NOTIFICATION (06/24/2024 11:00 AM CREDIT INVESTIGATOR) Comment Notification Label Only - See Separate Report 06/24/2024 11:00 AM CREDIT INVESTIGATOR [facility] Urine URINE / Unknown 9:42 AM CREDIT INVESTIGATOR Francisco Alvarado MD LAB - URINALYSIS ORD ERABLES [facility] [address] [place] [address] * HCG URINE QUALITATIVE - POCT (IP) INTERFACED (06/24/2024 9:47 AM CREDIT INVESTIGATOR) HCG Qual Urine Negative Negative 06/24/2024 9:53 AM CREDIT INVESTIGATOR [facility] Urine URINE / Unknown 06/24/2024 9 :47 AM CREDIT INVESTIGATOR 06/24/2024 9:53 AM CREDIT INVESTIGATOR Francisco Alvarado MD LAB - POINT OF CARE ORDERABLES Performing Organization Address City/[facility]/ZIP Co de Phone Number [facility] [address] [place] [id number] * Endoscopy, Colon, Screening (06/24/2024 7:46 AM CREDIT INVESTIGATOR) Report Endoscopy POC _ Patient Name: Erica Mora Procedure Date: 06/24/2024 7:46 AM Date of : 1980 Admit Type: Outpatient Age: 43 Gender: Female Ethnicity: Not or Race: Black or Attending MD: Francisco Alvarado MD, [id number] _ Procedure: Colonoscopy Indications: Screening for colorectal malignant neoplasm, This is the patient's first colonoscopy Providers: Francisco Alvarado MD (Doctor), Danica Rausch, DAFNE, Jazmyn Restrepo, DAFNE Referring MD: Mariangel Lagos DO (Referring MD) Medicines: Monitored Anesthesia [...] screening purposes. Procedure Code(s): --- Professional --- 39316, Colonoscopy, flexible; diagnostic, including collection of specimen(s) by brushing or washing, when performed (separate procedure) --- Technical --- 80399, Colonoscopy, flexible; diagnostic, including collection of specimen(s) by brushing or washing, when performed (separate procedure) Diagnosis Code(s): --- Professional --- Z12.11, Encounter for screening for malignant neoplasm of colon --- Technical --- Z12.11, Encounter for screening for malignant neoplasm of colon CPT copyright 2020 [employer]. All rights reserved. The codes documented in this report are preliminary and upon marketing and communications officer review may be revised to meet current compliance requirements. Francisco Alvarado MD 06/24/2024 11:15:03 AM This report has been signed electronically. Number of Addenda: 0 Note Initiated On: 06/24/2024 7:46 AM [facility] 06/24/2024 7:46 AM CREDIT INVESTIGATOR Francisco Alvarado MD GI PROCEDURE ORDERAB LES Performing Organization Address City/State/[facility] Co de Phone Number [facility] from Last 3 Months Care Teams Supervisor Paint Roller Covers Relationship Specialty Start Date End Date Mel Cohen MD [address] [facility] [address] [place] [address] PCP - General Family Medicine 08/02/12
--- OUTSIDE RECORDS SUMMARY | 2024-07-26 13:00 | XMS_ITS | Encounter Summary ---
Author Organization [facility] Address [address] [place] [address] Care Team Providers Care Chief Marketing Officer Name Role Phone Unavailable Primary Care Provider Unavailabl e Encounter Details Date Type Department Care Team (Late st Contact Info) Description 11/29/2002 Outpatient Historical [facility] John Welch MD NO ADDRESS ON FILE Social History Tobacco Use Types Packs/Day Years Used Date Smoking Tobacco: Never Assessed Comments Unknown Sex and Gender Information Value Date Recorded Sex Assigned at Not on file Legal Sex Female 5:20 AM RISK COMPLIANCE ANALYST Gender Identity Not on file Sexual Orientation Not on file documented as of this encounter Plan of Treatment Not on file documented as of this encounter Visit Diagnoses Not on filedocumented in this encounter
--- OUTSIDE RECORDS SUMMARY | 2024-07-26 13:00 | XMS_ITS | Clinical Summary ---
Author Organization [facility] Address [address] [facility] [place] [address] Care Team Providers Care Taping Foreman Name Role Phone Mel Cohen MD Primary Care Provider [phone] Source Comments [facility],non-owned Affiliates and Associated Physician Practices is amultiple site organization consisting of ambulatory clinics and hospital sitesin [place], [place], [place] and [place]. This disclosure is being madepursuant to the Care Everywhere program and may not contain all information available regarding this patient. Last updated 18.[facility] Allergies No known active allergies Medications * [...] daily with morning and evening meal Active Encounters Date Type Department Care Team Description 06/24/2024 10:49 AM BONE GRINDER Anesthesia Event [facility] - Endoscopy Services [address] [place] [address] Dio Santizo MD Will, Margaret H BRIM SHAPER-AC 06/24/2024 10:00 AM BONE GRINDER - 06/24/2024 10:30 AM BONE GRINDER Surgery [facility] - Endoscopy Services [address] [place] [address] Francisco Alvarado MD COLONOSCOPY SCREEN 06/24/2024 9:01 AM BONE GRINDER - 06/24/2024 11:54 AM BONE GRINDER Hospital Encounter [facility] - Endoscopy Services [address] [place] [address] Francisco Alvarado MD Surgery General Discharge Disposition: Home or Self Care 06/24/2024 Travel from Last 3 Months Social History Tobacco Use Types Packs/Day Years [...] Comments Blood Pressure 145/102 06/24/2024 11:30 AM BONE GRINDER Pulse 83 06/24/2024 11:30 AM BONE GRINDER Temperature 37 C (98.6 F) 06/24/2024 9:55 AM BONE GRINDER Respiratory Rate 23 06/24/2024 11:30 AM BONE GRINDER Oxygen Saturation 97% 06/24/2024 11:30 AM BONE GRINDER Inhaled Oxygen Concentration - - Weight 97.5 kg (215 lb) 06/24/2024 9:55 AM BONE GRINDER Height 157.5 cm (5' 2 ) 06/24/2024 9:55 AM BONE GRINDER Body Mass Index 39.32 06/24/2024 9:55 AM BONE GRINDER Plan of Treatment Health Maintenance Due Date Last Done Comments COLOGUARD (AGES 45-75) - COL ON CA SCREENING 1978 CT COLONOGRAPHY - COLON CA SCREENING 1978 FIT - COLON CA SCREENING 1978 FLEX SIG - COLON CA SCREENING 1978 HIV SCREENING 1993 HEPATITIS C SCREENING 11/29/1996 DTAP/TDAP/TD VACCINES (1 - Tdap) 1997 HEPATITIS B VACCINE (1 of 3 - 19+ 3-dose series) 1997 COVID-19 VACCINE (1 - 2023-2 5 season) 2024 DEPRESSION SCREENING 06/05/2024 MAMMOGRAM 05/27/2026 05/27/2024, 05/27/2024, 01/28/2023 PAP SMEAR 07/21/2026 07/21/2023, 07/21/2023, 07/21/2023 ZOSTER VACCINE (1 of 2) 2028 COLON MONITORING 06/24/2034 06/24/2024, 06/24/2024 COLONOSCOPY - COLON CA SCREENING 06/24/2034 06/24/2024, 06/24/2024 Colorectal Cancer Screening 06/24/2034 INFLUENZA VACCINE Completed 03/14/2024, 04/24/2023 HIB VACCINE Aged Out No longer eligi ble based on patient's age to complete this topic HPV VACCINE Aged Out No longer eligi ble based on patient's age to complete this topic MENINGOCOCCAL (Group B) VACCINE Aged Out No longer eligible b ased on patient's age to complete this topic MENINGOCOCCAL VACCINE Aged Out No luis m ronda eligible based on patient's age to complete this topic PNEUMOCOCCAL VACCINE Aged Out No long er eligible based on patient's age to complete this topic Procedures Procedure Name Priority Date/Time Associated Diagnosis Comments HCG URINE QUAL POCT NOTIFICATION Routine 06/24/2024 11:00 AM BONE GRINDER Preop examination [place] COLONOSCOPY, DIAGNOSTIC 06/24/2024 10:00 AM BONE GRINDER Screen for colon cancer HCG URINE QUALITATIVE - POCT (IP) INTERFACED Routine 06/24/2024 9:47 AM BONE GRINDER ENDOSCOPY, COLON, SCREENING Routine 06/24/2024 7:46 AM BONE GRINDER from Last 3 Months Results * HCG URINE QUAL POCT NOTIFICATION (06/24/2024 11:00 AM BONE GRINDER) Comment Notification Label Only - See Separate Report 06/24/2024 11:00 AM BONE GRINDER [facility] Urine URINE / Unknown 9:42 AM BONE GRINDER Francisco Alvarado MD LAB - URINALYSIS ORD ERABLES Performing Organization Address City/[facility] Co de Phone Number [facility] [address] [place] [phone] * HCG URINE QUALITATIVE - POCT (IP) INTERFACED (06/24/2024 9:47 AM BONE GRINDER) HCG Qual Urine Negative Negative 06/24/2024 9:53 AM BONE GRINDER [facility] Urine URINE / Unknown 06/24/2024 9 :47 AM BONE GRINDER 06/24/2024 9:53 AM BONE GRINDER Francisco Alvarado MD LAB - POINT OF CARE ORDERABLES Performing Organization Address [facility] Co de Phone Number [facility] [address] [place] [address] * Endoscopy, Colon, Screening (06/24/2024 7:46 AM BONE GRINDER) Report Endoscopy POC _ Patient Name: Erica Mora Procedure Date: 06/24/2024 7:46 AM Date of : 1980 Admit Type: Outpatient Age: 43 Gender: Female Ethnicity: Not or Race: Black or Attending MD: Francisco Alvarado MD, [id number] _ Procedure: Colonoscopy Indications: Screening for colorectal malignant neoplasm, This is the patient's first colonoscopy Providers: Francisco Alvarado MD (Doctor), Danica Rausch, RN, Jazmyn Restrepo, DAFNE Referring MD: Mariangel Lagos [...] screening purposes. Procedure Code(s): --- Professional --- 38092, Colonoscopy, flexible; diagnostic, including collection of specimen(s) by brushing or washing, when performed (separate procedure) --- Technical --- 10178, Colonoscopy, flexible; diagnostic, including collection of specimen(s) by brushing or washing, when performed (separate procedure) Diagnosis Code(s): --- Professional --- Z12.11, Encounter for screening for malignant neoplasm of colon --- Technical --- Z12.11, Encounter for screening for malignant neoplasm of colon CPT copyright 2020 [employer]. All rights reserved. The codes documented in this report are preliminary and upon patient registration representative review may be revised to meet current compliance requirements. Francisco Alvarado MD 06/24/2024 11:15:03 AM This report has been signed electronically. Number of Addenda: 0 Note Initiated On: 06/24/2024 7:46 AM [facility] 06/24/2024 7:46 AM BONE GRINDER Francisco Alvarado MD GI PROCEDURE ORDERAB LES [facility] from Last 3 Months Care Teams Taping Foreman Relationship Specialty Start Date End Date Mel Cohen MD [address] [facility] [address] [place] [address] PCP - General Family Medicine 08/02/12
--- OUTSIDE RECORDS SUMMARY | 2024-07-26 13:00 | XMS_ITS | Encounter Summary ---
Author Organization [facility] Address [address] [place] [address] Care Team Providers Care Housekeeping Staff Name Role Phone Unavailable Primary Care Provider Unavailabl e Encounter Details Date Type Department Care Team (Late st Contact Info) Description 11/15/2002 Outpatient Historical [facility] John Welch MD NO ADDRESS ON FILE Social History Tobacco Use Types Packs/Day Years Used Date Smoking Tobacco: Never Assessed Comments Unknown Sex and Gender Information Value Date Recorded Sex Assigned at Not on file Legal Sex Female 5:20 AM VACCINATOR Gender Identity Not on file Sexual Orientation Not on file documented as of this encounter Plan of Treatment Not on file documented as of this encounter Visit Diagnoses Not on filedocumented in this encounter
--- OUTSIDE RECORDS SUMMARY | 2024-07-26 13:01 | XMS_ITS | Encounter Summary ---
Author Organization [facility] Address [address] [place] [address] Care Team Providers Care Laborer Filter Plant Name Role Phone Unavailable Primary Care Provider Unavailabl e Encounter Details Date Type Department Care Team (Late st Contact Info) Description 10/26/2004 Outpatient Historical [facility] John Welch MD NO ADDRESS ON FILE Social History Tobacco Use Types Packs/Day Years Used Date Smoking Tobacco: Never Assessed Comments Unknown Sex and Gender Information Value Date Recorded Sex Assigned at Not on file Legal Sex Female 5:20 AM FURNITURE RESTORER Gender Identity Not on file Sexual Orientation Not on file documented as of this encounter Plan of Treatment Not on file documented as of this encounter Visit Diagnoses Not on filedocumented in this encounter
--- OUTSIDE RECORDS SUMMARY | 2024-07-26 13:01 | XMS_ITS | Encounter Summary ---
Author Organization [facility] Address 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
--- OUTSIDE RECORDS SUMMARY | 2024-07-26 13:01 | XMS_ITS | Continuity of Care Document ---
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 Name Role Phone Francisco Alvarado MD Unavailable Unavailable Allergies, Adverse Reactions, Alerts Substance Reaction Status Criticality No Known Drug Allergies Other Active No I nformation Medications Medication Instructions Dosage Effective Dates (start - stop) Status Comments atorvastatin 20 mg tablet take 1 tablet by oral route every day 20 MG - Active Singulair 10 mg tablet take 1 tablet by oral route every day in the evening 10 MG - Active Abilify 5 mg tablet TAKE 1 TABLET BY MOUTH EVERY DAY- - Active peg 3350-electrolytes 236 gram-22.74 gram-6.74 gram-5.86 gram solution Drink 1/2 the bottle at 5pm the evening before colonoscopy, drink the other 1/2 6 hrs prior colonoscopy, as directed by physician. - Active OR ANY COVERED GENERIC metformin 500 mg tablet take 1 tablet by oral route every day with evening meal - Active amlodipine 10 mg tablet take 1 tablet by oral route every day 10 MG - Active Wixela Inhub 250 mcg-50 mcg/dose powder for inhalation inhale 1 puff by inhalation route 2 times every day in the morning and evening approximately 12 hours apart 1.00 puff - Active Symbicort 160 mcg-4.5 mcg/actuation HFA aerosol inhaler inhale 2 puff by inhalation route 2 times every day in the morning and evening 2.00 puff - Active iron 325 mg (65 mg iron) tablet take 1 tablet by oral route every day 325 MG - Active albuterol sulfate HFA 90 mcg/actuation aerosol inhaler inhale 2 puff by inhalation route every 4 - 6 hours as needed - Active albuterol sulfate 2.5 mg/3 mL (0.083 %) solution for nebulization inhale 3 milliliter by nebulization route 3 times every day 2.5 MG - Active Procedures Procedure Date SCREENING COLONOSCOPY (NOT HIGH RISK) Jorge Pt inelig neg scrn depres Brief Emotional/Behavioral A ssessment, With Scoring/Doct, Per Stndrd Instrument Pt inelig neg scrn depres CBC, INC PLATELETS AND DIFFERENTIAL COMPREHEN METABOLIC PANEL [facility] 4 HEMOGLOBIN A1C HGA1C, GLYCO LIPID PANEL ROUTINE VENIPUNCTURE PREVENTATIVE-EST: 40-64 BODY MASS INDEX DOCD SYST BP LT 130 MM HG DIAST BP 80-89 MM HG CBC, INC PLATELETS AND DIFFERENTIAL COMPREHEN METABOLIC PANEL [facility] 4 FERRITIN LEVEL HEMOGLOBIN A1C HGA1C, GLYCO IRON (FE), TOTAL TIBC, & % SATURATION LIPID PANEL ROUTINE VENIPUNCTURE OFFICE [id number] BODY MASS INDEX DOCD SYST BP LT 130 MM HG DIAST BP 80-89 MM HG DSCHRG MED/CURRENT MED MERGE Transitional Care- 14 Days Of Discharge BODY MASS INDEX DOCD SYST BP GE 130 - 139MM HG DIAST BP 80-89 MM HG DSCHRG MED/CURRENT MED MERGE HEMOGLOBIN A1C HGA1C, GLYCO ROUTINE VENIPUNCTURE Pt inelig neg nickn mayur OFFICE [id number] BODY MASS INDEX DOCD SYST BP LT 130 MM HG DIAST BP 80-89 MM HG CBC, INC PLATELETS AND DIFFERENTIAL FERRITIN LEVEL IRON (FE), TOTAL TIBC, & % SATURATION ROUTINE VENIPUNCTURE NUTRITIONAL THERAPY; INITIAL ASSESSMENT AND INTERVENTION, INDIVIDUAL, EACH 15 NE BODY MASS INDEX DOCD CBC, INC PLATELETS AND DIFFERENTIAL COMPREHEN METABOLIC PANEL CMP HEMOGLOBIN A1C HGA1C, GLYCO LIPID PANEL ROUTINE VENIPUNCTURE PREVENTATIVE-EST: 40-64 BODY MASS INDEX DOCD SYST BP >= 140 MM HG6 IT DIAST BP 80-89 MM HG FERRITIN LEVEL IRON (FE), TOTAL TIBC, & % SATURATION COMPREHEN METABOLIC PANEL CMP ROUTINE VENIPUNCTURE Pt inelig neg scrn mayur CBC, INC PLATELETS AND DIFFERENTIAL COMPREHEN METABOLIC PANEL CMP LIPID PANEL ROUTINE VENIPUNCTURE PREVENTATIVE-EST: 40-64 BODY MASS INDEX DOCD SYST BP LT 130 MM HG DIAST BP < 80 MM HG GENERAL HEALTH PANEL LIPID PANEL ROUTINE VENIPUNCTURE SCREENING FOR PAP (OBTAINING SPECIMEN) A PREVENTATIVE-EST: 40-64 Apr-30-2021 BODY MASS INDEX DOCD SYST BP LT 130 MM HG DIAST BP < 80 MM HG EKG (ELECTROCARDIOGRAM) CBC, INC PLATELETS, NO DIFFERENTIAL COMPREHEN METABOLIC PANEL CMP 9 THYROID STIMULATION HORMONE(TSH) 2018 ROUTINE VENIPUNCTURE OFFICE [id number] BODY MASS INDEX DOCD SYST BP GE 130 - 139MM HG DIAST BP < 80 MM HG Advance Directives Directive Yes / No Effective Date File Name No Information Encounters Encounter Description Practice Location Reason(s) For Visit Diagnoses Date Provider Providers Copied on Encounter [facility], [address], [place], [place], [address] , tel:[phone] [facility] No Information 5 Christiano Singh. [address] [place] [address], [id number], [place]. tel:[phone] Referring Provider: Francisco Alvarado, [address] [place] [address], [address] . tel:[phone] [facility], [address], [place], [place], [address] , [place] tel:[phone] [facility] No Information 4 Demond August. [address], [address], [id number], [place]. tel:[phone] [facility], [address], [place], [place], [address] , [place] tel:[phone] [facility] No Information 4 Christiano Singh. [address] [place] [address], [id number], [place]. tel:[phone] [facility], [address], [place], [place], [address] , tel:[phone] [facility] No Information 4 Demond August. [address], [address], [place], [place], [address], . tel:[phone] PREVENTATIVE- EST: 40-64 [facility], [address], [place], [place], [address] , tel: [phone] [facility] Chronic Conditions (chief complaint)c hronic conditions (chief complaint) Encounter for general adult medical examination without abnormal findingsHyperg lycemia, unspecifiedEss ential (primary) hypertensionNo nalcoholic steatohepatiti s (SHERIDAN)Other sleep apneaBipolar disorder, unspecifiedOth er asthmaMixed hyperlipidemia Body mass index [BMI] 40.0-44.9, adult 4 Demond August. [address], [address], [place], [place], [address], . tel:[phone] Referring Provider: Mariangel Lagos, [address] [facility], [place], [address] . tel:[phone] [facility], [address], [place], [place], [address] , tel:[phone] [facility] No Information 4 Demond August. [address], [address], [place], [place], [address], . tel:[phone] [facility], [address], [place], [place], [address] , tel:[phone] [facility] No Information 4 Tavia Mishra. [address], [address], [place], [place], [address], . tel:[phone] OFFICE [id number] CHEY [facility], [address], [place], [place], [address] , tel:[phone] [facility] Chronic Conditions (chief complaint)c hronic conditions (chief complaint) Other asthmaAnemia, unspecifiedHyp erglycemia, unspecifiedFat ty (change of) liver, not elsewhere classifiedEsse ntial (primary) hypertensionNo nalcoholic steatohepatiti s (SHERIDAN)Mixed hyperlipidemia Bipolar disorder, unspecifiedBod y mass index [BMI] 38.0-38.9, adult 4 Demond August[address], [address], [place], [place], [address], . tel:[phone] Referring Provider: Mariangel Lagos, [address], [place], [address] . tel:[phone] Transitional Care- 14 Days Of Discharge [facility], [address], [place], [place], [address] , tel:[phone] [facility] asthma (chief complaint) Body mass index [BMI] 37.0-37.9, adultExacerbat ion of asthma, unspecified asthma severity, unspecified whether persistent 3 Lambert Adrian. [address], [place] [address] [place] [address], [id number], [place]. tel:[phone] Referring Provider: Mariangel Lagos, [address] [facility], [place], [address] . tel:[phone] [facility], [address], [place], [place], [address] , [phone] [facility] No Information 3 Demond August. [address], [address], [place], [place], [address], [place]. tel:[phone] Referring Provider: Mariangel Lagos, [address] [facility] [address], [place], [address] . tel:[phone] [facility], [address], [place], [place], [address] , tel:[phone] [facility] Elevated fasting glucose 3 Demond August. [address], [address], [place], [place], [address], . tel:[phone] Referring Provider: Mariangel Lagos, [address], [place], [address] . tel:[phone] [facility], [address], [place], [place], [address] , tel:[phone] [facility] No Information 3 Demond August. [address], [address], [place], [place], [address], [place]. tel:[phone] OFFICE [id number] CHEY [facility], [address], [place], [place], [address] , [place] tel:[phone] [facility] Patient encounter (chief complaint)C hronic Conditions (chief complaint)c hronic conditions (chief complaint) Bipolar disorder, unspecifiedHyp erglycemia, unspecifiedEss ential (primary) hypertensionAn emia, unspecified typeBody mass index [BMI] 36.0-36.9, adultRheumatoi d arthritis, unspecified 3 Demond August. [address], [address], [place], [place], [address], [place]. tel:[phone] Referring Provider: Mariangel Lagos, [address], [place], [address] . tel:[phone] [facility], [address], [place], [place], [address] , [phone] [facility] Dietary counseling and surveillancePr ediabetesBody mass index [BMI] 38.0-38.9, adult 3 Cheyenne Mishra. [address], [facility] [address], [place], [place], [address], [place]. tel:[phone] Referring Provider: [address], [place], [address] . tel:[phone] PREVENTATIVE- EST: 40-64 [facility], [address], [place], [place], [address] , tel:[phone] [facility] Chronic Conditions (chief complaint)c hronic conditions (chief complaint) Essential (primary) hypertensionBi polar disorder, unspecifiedMix ed hyperlipidemia Encounter for general adult medical examination with abnormal findingsBody mass index [BMI] 37.0-37.9, adultAnemia, unspecified type 3 Demond August. [address], [address], [place], [place], [address], [place]. tel:[phone] Referring Provider: Mariangel Lagos, [address], [place], [address] . tel:[phone] [facility], [address], [place], [place], [address] , tel: [phone] [facility] Elevated liver enzymes 2 Demond August. [address], [address], [place], [place], [address], [place]. [phone] Referring Provider: Mariangel Lagos, [address], [place], [address] . tel:[phone] PREVENTATIVE- EST: 40-64 [facility], [address], [place], [place], [address] , tel: [phone] [facility] Chronic Conditions (chief complaint) Bipolar disorder, unspecifiedEnc ounter for general adult medical examination with abnormal findingsEssent ial (primary) hypertensionOt her asthma 2 Demond August. [address], [address], [place], [place], [address], [place]. tel:[phone] Referring Provider: [address], [place], [address] . tel:[phone] [employer] [facility], [address], [place], [place], [address] , tel:[phone] [facility] GoiterScreenin g mammogram, encounter for 1 Demond August. [address], [address], [place], [place], [address], [place]. tel:[phone] PREVENTATIVE- EST: 40-64 [facility], [address], [place], [place], [address] , tel: [phone] [facility] z00 (chief complaint) GoiterEncounte r for general adult medical examination without abnormal findingsBipola r 1 disorderHypert ension, unspecified typeBody mass index (BMI) 35.0-35.9, adult Apr-3 0-202 1 Demond August. [address], [address], [place], [place], [address], [place]. tel:[phone] Referring Provider: Mariangel Lagos, [address], [place], [address] . tel:[phone] OFFICE [id number] CHEY [facility], [address], [place], [place], [address] , tel: [phone] [facility] syncope (chief complaint) Bradycardia, unspecifiedBod y mass index (BMI) 33.0-33.9, adult 9 Jaskaran Osman. [address], [address], [place], [place], [address], [place]. tel:[phone] Referring Provider: Jacqui Jessica, [address], [place], [address] . tel:[phone] [facility], [address], [place], [place], [address] , [place] tel:[phone] [facility] Body mass index (BMI) 33.0-33.9, [facility] 9 Jaskaran Osman. [address], [address], [place], [place], [address], [place]. tel:[phone] Referring Provider: Jacqui Jessica, [address], [place], [address] . tel:[phone] [facility], [address], [place], [place], [address] , tel: [phone] [facility] Body mass index (BMI) 34.0-34.9, adultEssential hypertension 9 Jaskaran Osman. [address], [address], [place], [place], [address], [place]. tel:[phone] Referring Provider: Jacqui Jessica, [address], [place], [address] . tel:[phone] [facility], [address], [place], [place], [address] , tel: [phone] [facility] Body mass index (BMI) 33.0-33.9, adultEssential hypertensionFa china history of diabetes mellitus 9 Jaskaran Osman. [address], [address], [place], [place], [address], [place]. tel:[phone] Referring Provider: Jacqui Jessica, [address] [facility], [place], [address] . tel:[phone] [facility], [address], [place], [place], [address] , tel: [phone] [facility] Encounter for gynecological examination (general) (routine) without abnormal findings 7 Jaskaran Osman. [address], [address], [place], [place], [address], [place]. tel:[phone] Referring Provider: Jacqui Jessica, [address], [place], [address] . tel:[phone] [facility], [address], [place], [place], [address] , tel:[phone] [facility] ASTHMA NOS 4 Jaskaran Osman. [address], [address], [place], [place], [address], [place]. tel:[phone] Referring Provider: Jacqui Jessica, [address], [place], [address] . tel:[phone] [facility], [address], [place], [place], [address] , tel: [phone] [facility] woman exam with routine gynecological exam Mar-2 8-201 4 Jaskaran Osman. [address], [address], [place], [place], [address], [place]. tel:[phone] Referring Provider: Jacqui Jessica, [address], [place], [address] . tel:[phone] [facility], [address], [place], [place], [address] , tel: [phone] [facility] No Information Sep-0 6-201 1 Jaskaran Osman. [address], [address], [place], [place], [address], [place]. tel:[phone] [facility], [address], [place], [place], [address] , tel: [phone] [facility] SCREEN LIPOID DISORDERSASTHM A NOS 4-200 7 Jaskaran Osman. [address], [address], [place], [place], [address], [place]. tel:[phone] [facility], [address], [place], [place], [address] , tel: [phone] [facility] LONG-TERM USE MEDS NECSCREEN-THYR OID DISORDERACUTE PHARYNGITISVAC SHAQ FOR INFLUENZA Dec-0 7-200 5 Jaskaran Osman. [address], [address], [place], [place], [address], . tel:[phone] [facility], [address], [place], [place], [address] , tel: [phone] [facility] ACUTE URI NOS Mar- 3-200 5 [facility]. [address] [place] [address], [place], [address], [place]. [facility], [address], [place], [place], [address] , tel: [phone] [facility] RHEUMATOID ARTHRITISNONSU PP OTITIS MEDIA NOS 5 Jaskaran Osman. [address], [address], [place], [place], [address], [place]. tel: [phone] [facility], [address], [place], [place], [address] , tel: [phone] [facility] STREP SORE THROAT 5 Jaskaran Osman. [address], [address], [place], [place], [address], [place]. tel: [phone] [facility], [address], [place], [place], [address] , tel:[phone] [facility] ROUTINE MEDICAL EXAM 5 Conversion Doctor. [address] [place] [address], [facility], [place]. [facility], [address], [place], [place], [address] , tel: [phone] [facility] No Information 4 Jaskaran Osman. [address], [address], [place], [place], [address], [place]. tel:[phone] [facility], [address], [place], [place], [address] , tel: [phone] [facility] HYPERLIPIDEMIA NEC/NOSMALAISE AND FATIGUE NEC 4 Jaskaran Osman. [address], [address], [place], [place], [address], [place]. tel:[phone] Family History Family Member Type Diagnosis Age At Onset No Information Immunizations Vaccine Date Status Comments Fluzone Trivalent, preservat teresa free, split virus, 0.5mL dosage administered Source: Public Agency Fluzone Quad, preservative f ree, split virus, 0.5mL dosage administered Source: Public Agency Pfizer Comirnaty COVID vacci ne, zoe-sucrose, 30mcg/0.3mL dose, 12 years and older administered Source: Source Unspe cified Pfizer Comirnatjared ROSARIO vaccgayla ne, zoe-sucrose, 30mcg/0.3mL dose, 12 years and older administered Source: Source Unspe cified 69990 - Influenza administered Source: So urce Unspecified Payers Payer name Insurance type Covered constitution party ID Authorlucianaa tiuday(s) [facility] CI [id number] Social History Type Description Quantity Date Captured Comments Sex Female Smoking Status No Information Chief Complaint And Reason For Visit No Information Reason For Referral Reason For Referral No Information Plan Of Treatment Date Type Action Status Goal Dietary manageme nt education, guidance, and counseling completed Goal Dietary manageme nt education, guidance, and counseling completed Goal Dietary manageme nt education, guidance, and counseling completed Goal Dietary manageme nt education, guidance, and counseling completed Goal Dietary manageme nt education, guidance, and counseling completed Goal Dietary manageme nt education, guidance, and counseling completed Goal Dietary manageme nt education, guidance, and counseling completed Goal Dietary manageme nt education, guidance, and counseling completed Referral Ordered: Limited abdominal ultrasound Appointment date/timeframe: 11/22/2021 ordered Referral Ordered: SCREENING MAMMOGRAM (CAD) ordered Referral Ordered: ULTRASOUND OF HEAD & NECK, THYROID ordered Referral Ordered: SCREENING MAMMOGRAM (CAD) Bilateral ordered Referral Ordered: SCREENING MAMMOGRAM (CAD) Bilateral breast ordered Future Order: Radiology Order DI AGNOSTIC MAMMOGRAM (CAD) BOTH BREASTS ([id number]), Sent on: Sent Future Order: Radiology Order SC REENING MAMMOGRAM (CAD) Bilateral breast ([id number]), Body Site: breast, Sent on: Sent History Of Present Illness Encounter Date Complaint History Of Prese nt Illness Chronic Conditions *See Chronic Conditions HPI chronic conditions *See Chronic Conditions [facility] Chronic Conditions *See Chronic Conditions [facility] chronic conditions *See Chronic Conditions [facility] asthma Hosp fu. Pt was recently admitted for URI sx and asthma flair. Viral cultures neg. She was dc on pred taper, albuterol, singulair, Symbicort. She is improving> No longer needing albuterol. She has few days left of pred taper. Has fu tigist with pulm upcoming. chronic conditions *See Chronic Conditions [facility] Chronic Conditions *See Chronic Conditions [facility] Patient encounter Chief complain t: htn.Last visit her ac was 6.3, she has cut out fast food and soda and has lost 10 lbs in a few weeks. She has seen the [employer] which was very helpful. She has not started exercising yet.With her increased dose of amlodipine she initially noticed some nausea which has since subsided. She denies any chest pain, shortness of breath, lower extremity edema.she had anemia at last blood draw, has had heavy periods this year, one very irregular. last 2 periods have been back on track. She was supposed to find an APPRAISAL SPECIALIST to discuss her irregular periods but she has not done this yet.Since restarting her Abilify her moods have been very well controlled. No longer cycling quickly through depression and dom. Chronic Conditions *See Chronic Conditions [facility] chronic conditions *See Chronic Conditions [facility] Chronic Conditions *See Chronic Conditions [facility] z00 patient here for her routine yearly physical. She has been doing very well. 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 She has two sons, one is 18 and has autism, the other is 17 and will be going to [employer] next year for college. Her mood has been very good and stable, she really likes the Abilify. She denies any dizziness, lightheadedness palpitations, or other signs and symptoms of hypo or hyperthyroidism. syncope Onset was 1 day ago. The severity is 10. The problem is new. Initial symptoms include: light-headed, loss of consciousness and saw white. Context: anorexia. Identified Risk Factors include none. Symptoms are aggravated by dehydration. Relieving factors include rest. Pertinent negatives include fatigue and fever. Additional information: stood up, felt lightheaded, passed out. stood up and passed out again. bp was 120 and pulse 58. no prior episodes, no chest pain or shortness of breath. Functional Status Date Functional Assessmen t No Information Instructions Date Instruction Additional Infor citlali Dietary management e ducation, guidance, and counseling Related to Body mass index (BMI) 40.0-44.9, adult Giving encouragement to exercise Related to Body mass index (BMI) 40.0-44.9, adult Encouraged pt to wor k on a low carb diet and exercise, discussed progression of pre-dm to DM and the negative healths effects of DM. Will check HgA1c today. Related to Hyperglycemia, unspecified Well-controlled on c urrent dose of Abilify, continue. Related to Bipolar disorder, unspecified I explained that SUSAN H can turn into fibrosis in 10% of patients and that weight loss is the best way to prevent this from occurring. Will continue to monitor liver enzymes on a yearly basis. Related to Fatty (change of) liver, not elsewhere classified Doing much better af ter hospitalization over Thanksgiving for asthma exacerbation. Symptoms are currently well-controlled with her Symbicort and Singulair and as needed albuterol. Discussed if she ever has a flare again she can always call me Related to Other asthma BP controlled. Pt to cont meds, call for BP above goal of 140/80 or less than 110/60. Related to Essential (primary) hypertension Pt not have side eff ects from statin. Reviewed ASCVD risk calculator & discussed benefits of continuing statin. Related to Mixed hyperlipidemia I explained that SUSAN H can turn into fibrosis in 10% of patients and that weight loss is the best way to prevent this from occurring. Will continue to monitor liver enzymes on a yearly basis. Related to Nonalcoholic steatohepatitis (SHERIDAN) She continues to hav e heavy periods, have asked her to make an appointment with the APPRAISAL SPECIALIST to discuss. Check CBC, iron panel today. Continue oral iron replacement. Related to Anemia, unspecified Dietary management e ducation, guidance, and counseling Related to Body mass index (BMI) 38.0-38.9, adult Giving encouragement to exercise Related to Body mass index (BMI) 38.0-38.9, adult Hosp fu asthma exace rbation triggered by URI. dc on pred taper, Symbicort, Singulair and albuterol. She has fu pulm upcoming. Doing much better, not needing albuterol since dc. p. cont med mgmt as directedFu pulm as scheduledIf sx redevelop prior to appt with pulm fu sooner Related to Exacerbation of asthma, unspecified asthma severity, unspecified whether persistent Disease process Dietary management e ducation, guidance, and counseling Related to Body mass index (BMI) 37.0-37.9, adult Giving encouragement to exercise Related to Body mass index (BMI) 37.0-37.9, adult likely due to irregu lar and heavy periods that she has been having lately. She was post to follow-up with OB, however she has not made this appointment yet. Will recheck CBC with iron panel today and encouraged her to make an appointment with APPRAISAL SPECIALIST. Related to Anemia, unspecified type Doing well with resu mption of Abilify, mood stable, continue. Related to Bipolar disorder, unspecified Keep up the good wor k with diet and exercise, not due to recheck A1c yet, encouraged her to follow-up in 5 months for recheck. Related to Hyperglycemia, unspecified Giving encouragement to exercise Related to Body mass index (BMI) 36.0-36.9, adult Dietary management e ducation, guidance, and counseling Related to Body mass index (BMI) 36.0-36.9, adult We reviewed the valentino ents family, medical, and surgical history. We discussed the age appropriate guidelines for screening and went over the screenings that I recommend the patient undergo. Will check yearly lab work.-refer dr pires for pap smear/ abnormal periods-gabriel due in December Related to Encounter for general adult medical examination with abnormal findings Pt not have side eff ects from statin. Reviewed ASCVD risk calculator & discussed benefits of continuing statin. Related to Mixed hyperlipidemia worsening mood, thou ght cycling, manic episodes- will get her Abilify filled. Related to Bipolar disorder, unspecified BP is too high today . MEDICATION CHANGES: increase amlodipine from 5 to 10 mg po qd. Pt to check BP daily; call for > 140/90 or <115/70. Related to Essential (primary) hypertension Dietary management e ducation, guidance, and counseling Related to Body mass index (BMI) 37.0-37.9, adult Giving encouragement to exercise Related to Body mass index (BMI) 37.0-37.9, adult We reviewed the valentino ents family, medical, and surgical history. We discussed the age appropriate guidelines for screening and went over the screenings that I recommend the patient undergo. Will check yearly lab work.-due for mammogram , will order-she will get covid booster, not interested in tdap Related to Encounter for general adult medical examination with abnormal findings refill albuterol, we ll controlled without exacerbation today Related to Other asthma BP controlled. Pt to cont meds, call for BP above goal of 140/80 or less than 110/60. Related to Essential (primary) hypertension Mood is well cont. o n current regimen. Discussed pt should cont. meds, report change in mood, Si or HI. Exercise and positive thinking encourage as well. Related to Bipolar disorder, unspecified Dietary management e ducation, guidance, and counseling Related to Body mass index (BMI) 37.0-37.9, adult Giving encouragement to exercise Related to Body mass index (BMI) 37.0-37.9, adult Patient's mood is we ll controlled on current medication regimen. We discussed that the patient should continue medications and report any change in mood, suicidal or homicidal thinking. Exercise and positive thinking encourage as well. Related to Bipolar 1 disorder We reviewed the valentino ents family, medical, and surgical history. We discussed the age appropriate guidelines for screening and went over the screenings that I recommend the patient undergo. Will check yearly lab work.-mammogram ordered-pap smear done today Related to Encounter for general adult medical examination without abnormal findings Blood pressure is co ntrolled today. Patient asked to please continue current medicine, and to call our office for BP average above goal of 140/80 or less than 110/60. Related to Hypertension, unspecified type TSH, T4, thyroid US ordered Rela beryl to Goiter Giving encouragement to exercise Related to Body mass index (BMI) 35.0-35.9, adult Dietary management e ducation, guidance, and counseling Related to Body mass index (BMI) 35.0-35.9, adult cbc tsh, event monitor Related t o Bradycardia, unspecified Dietary management e ducation, guidance, and counseling Related to Body mass index (BMI) 33.0-33.9, adult Giving encouragement to exercise Related to Body mass index (BMI) 33.0-33.9, adult Assessments Type Assessment Date No Information Patient Care Teams Name Effective Dates (start - stop) Status Members No Information
--- OUTSIDE RECORDS SUMMARY | 2024-07-26 13:01 | XMS_ITS | Encounter Summary ---
Author Organization [employer] Address 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
--- OUTSIDE RECORDS SUMMARY | 2024-07-26 13:01 | XMS_ITS | Encounter Summary ---
Author Organization [facility] Address [address] [place] [address] Care Team Providers Care Machine Inspector Name Role Phone Unavailable Primary Care Provider Unavailabl e Encounter Details Date Type Department Care Team (Late st Contact Info) Description 07/21/2005 Outpatient Historical [facility] SWITCH OPERATOR - [facility] [place] [facility] [address] [facility] [address] [address] John Lema MD NO ADDRESS ON FILE Social History Tobacco Use Types Packs/Day Years Used Date Smoking Tobacco: Never Assessed Comments Unknown Sex and Gender Information Value Date Recorded Sex Assigned at Not on file Legal Sex Female 5:20 AM TUG CAPTAIN Gender Identity Not on file Sexual Orientation Not on file documented as of this encounter Plan of Treatment Not on file documented as of this encounter Visit Diagnoses Not on filedocumented in this encounter
--- OUTSIDE RECORDS SUMMARY | 2024-07-26 13:01 | XMS_ITS | Encounter Summary ---
Author Organization [employer] [facility] Address 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
--- OUTSIDE RECORDS SUMMARY | 2024-07-26 13:01 | XMS_ITS | Encounter Summary ---
Author Organization [employer] Address [address] [place] [address] Care Team Providers Care Artists' Booking Representative Name Role Phone Unavailable Primary Care Provider Unavailabl e Encounter Details Date Type Department Care Team (Late st Contact Info) Description 11/26/2004 Outpatient Historical [facility] John Welch MD NO ADDRESS ON FILE Social History Tobacco Use Types Packs/Day Years Used Date Smoking Tobacco: Never Assessed Comments Unknown Sex and Gender Information Value Date Recorded Sex Assigned at Not on file Legal Sex Female 5:20 AM CURRENCY EXAMINER Gender Identity Not on file Sexual Orientation Not on file documented as of this encounter Plan of Treatment Not on file documented as of this encounter Visit Diagnoses Not on filedocumented in this encounter
--- OUTSIDE RECORDS SUMMARY | 2024-07-26 13:01 | XMS_ITS | Clinical Summary ---
Author Organization [facility] Address [address] [place] [address] Care Team Providers Care Pedigree Tracer Name Role Phone Unavailable Primary Care Provider Unavailabl e Allergies No known active allergies Medications albuterol sulfate 90 mcg/actuation metered powder inhaler Take by inhalation . Active Encounters Date Type Department Care Team Description 07/23/2024 External Device Data [facility] ABSTRACTION Provider, Abstract 07/16/2024 External Device Data [facility] ABSTRACTION Provider, Abstract 06/26/2024 External Device Data [facility] ABSTRACTION Provider, Abstract 06/25/2024 External Device Data [facility] ABSTRACTION Provider, Abstract 06/18/2024 External Device Data [facility] ABSTRACTION Provider, Abstract 05/27/2024 1:30 PM STATION JAILER Ancillary Procedure [address] [address] Mariangel Lagos DO Encounter for screening mammogram for malignant neoplasm of breast 05/07/2024 External Device Data ST[facility] ABSTRACTION Provider, Abstract from Last 3 Months Social History Tobacco Use Types Packs/Day Years Used Date Smoking Tobacco: Never Smokeless Tobacco: Never Comments No Sex and Gender Information Value Date Recorded Sex Assigned at Not on file Legal Sex Female 5:20 AM STATION JAILER Gender Identity Not on file Sexual Orientation Not on file Last Filed Vital Signs Vital Sign Reading Time Taken Comments Blood Pressure 167/109 06/07/2018 1:54 PM STATION JAILER Pulse 63 06/07/2018 1:54 PM STATION JAILER Temperature 36.8 C (98.2 F) 06/07/2018 1:54 PM STATION JAILER Respiratory Rate 18 06/07/2018 1:54 PM STATION JAILER Oxygen Saturation 99% 06/07/2018 1:54 PM STATION JAILER Inhaled Oxygen Concentration - - Weight 85.7 kg (189 lb) 06/07/2018 1:54 PM STATION JAILER Height 157.5 cm (5' 2 ) 06/07/2018 1:54 PM STATION JAILER Body Mass Index 34.57 06/07/2018 1:54 PM STATION JAILER Plan of Treatment Health Maintenance Due Date Last Done Comments DIABETES ANNUAL FOOT EXAM 1996 DIABETES ANNUAL RETINAL EXAM 1996 DIABETES MICROALBUMIN ANNUAL SCREEN 1996 LDL CHOLESTEROL ANNUAL 1996 DTAP/TDAP/TD VACCINES (1 - Tdap) 1997 HEPATITIS B VACCINES (1 of 3 - 19+ 3-dose series) 1997 COLORECTAL SCREENING 12/05/2023 Colorectal Cancer Screening 12/05/2023 FIT-DNA Q 3 years 12/05/2023 FIT/FOBT Q 1 year 12/05/2023 Flex Sig/CT Colonography Q 5 years 12/05/2023 DIABETES HBA1C Q 6 MONTHS 10/17/20242023, 06/16/2023, 03/08/2023, Additional history exists BREAST CANCER SCREENING 05/27/2025 05/27/2024, 01/28 CERVICAL CANCER SCREENING 07/21/2026 07/21/2023 INFLUENZA VACCINE Completed 03/14/2024, 04/24/2023 HPV VACCINES Aged Out No longer eligi ble based on patient's age to complete this topic Procedures Procedure Name Priority Date/Time Associated Diagnosis Comments MAMMO 3D MONTEZ SCREEN BILAT W OR WO CAD Routine 05/27/2024 1:39 PM STATION JAILER Encounter for screening mammogram for malignant neoplasm of breast from Last 3 Months Results * MAMMO 3D MONTEZ SCREEN BILAT W OR WO CAD (05/27/2024 1:39 PM STATION JAILER) Anatomical Region Laterality Modality Breast Bilateral Mammography 05/27/2024 1:39 PM STATION JAILER Impressions 05/27/2024 1:55 PM STATION JAILER IMPRESSION: Stable bilateral screening mammogram. Recommend routine yearly followup. OVERALL FINAL ASSESSMENT: BI-RADS CATEGORY 2: Benign findings Narrative 05/27/2024 1:55 PM STATION JAILER BILATERAL SCREENING DIGITAL MAMMOGRAM WITH 3D TOMOSYNTHESIS AND CAD DATE: 05/27/2024 1:39 PM HISTORY: Annual screening study. COMPARISON: 2021 and 2022 TECHNIQUE: CC and MLO views of the breasts were obtained digitally and reviewed with CAD. Tomosynthesis was performed in all projections. BREAST COMPOSITION: Heterogeneously dense, which may obscure small masses. FINDINGS: No suspicious masses, suspicious calcifications, or areas of asymmetry or distortion are identified. There is fatty replaced lymph node in the left axilla which is similar back to 2021. us Mariangel Lagos DO MAMMO ORDERABLES Final R esult from Last 3 Months Insurance POS II [facility] [id number]
[2024-07-26 13:13] LABS: Hematocrit 39.1 % (37.0-47.0)
[2024-07-26 13:28] LABS: Anion Gap 9 mmol/L (4-12); Blood Urea Nitrogen 8 mg/dL (7-17); Calcium 9.4 mg/dL (8.4-10.2); Carbon Dioxide 25 mmol/L (22-30); Chloride 108 mmol/L (98-107); Estimated Glomerular Filt Rate > 60; Glucose 130 mg/dL (65-110); Potassium 3.9 mmol/L (3.4-5.0); Sodium 142 mmol/L (137-145)
== END 2024-07-26 12:46 | disposition home or self-care (01) ==
LOC: ANHSURGERY 12:56
PROVIDERS: Anesthesiology; Visit Provider Obstetrics & Gynecology
DX: Z01.818 Encounter for other preprocedural examination (principal); R94.31 Abnormal electrocardiogram [ECG] [EKG]; D64.9 Anemia, unspecified; D21.9 Benign neoplasm of connective and other soft tissue, unspecified; E11.9 Type 2 diabetes mellitus without complications
CPT/HCPCS: 36415; 80048; 85014; 85018; 93005

== ENCOUNTER 2024-07-29 02:43 | Day surgery (SDC) | payer OTHER, SELFPAY ==
[2024-07-22 13:25] VITALS: BMI 39.6
--- NOTE | 2024-07-22 13:34 | PC.NURSE ---
Report to the Outpatient Waiting Room, entrance under the green pavilion located off [facility], at time _0600_ on date _[id number]_. Planned Procedure Time: _0730_.? Time changes happen often and if your time is changed the preop area will call you the afternoon before. - You and your visitor will be asked to self-screen and do not enter if you have any COVID symptoms. Please call surgeon if you need to reschedule. - A mask is optional within the hospital at this time. Patients may have clear liquids (water, carbonated beverages, clear teas, apple juice) until 3 hours prior to surgery with a maximum of 20 ounces. - No food from midnight until time of surgery and no smoking, or chewing tobacco (or any form of nicotine). No chewing gum, candy or mints. Take only the following medications with a SIP of water on the morning of surgery: __Amlodipine and Aripiprazole____ DO NOT STOP ANY OF YOUR OTHER PRESCRIPTION MEDICATIONS PRIOR TO SURGERY EXCEPT THE FOLLOWING Hold all vitamins and supplements for 3 days per anesthesiologist. Medications to discontinue per physician Date to take last rwtb__[phone]____ Please no make-up, nail slovenian, hairspray, perfume, deodorant, or body powder the day of surgery.? No jewelry (including any body piercings) or valuables the day of surgery, leave them at home.? Please take a shower or bath the night before, or the morning of, surgery with an antibacterial soap.? Wear comfortable, loose fitting clothing.? - Jewelry must be removed prior to entering the operating room.? Rings and piercings that are not removed may be cut off. - The hospital will not accept responsibility for valuables.? - Please leave all valuables, including medications, at home the day of surgery. If you are going home after surgery, a licensed bulk delivery driver must drive you home.? - NO public transportation without another adult if you receive anesthesia. - We recommend that an adult stay with you for 24 hours following discharge. - We also recommend that you do not drive, make important decision, drink alcoholic beverages, or take any drugs that were not prescribed by your health care provider for at least 24 hours after your discharge time. Follow any additional instructions given to you from your surgeon. Telephone instructions given to _Erica___and asked if any additional questions and then verbalized understanding. Patient advised to call surgeon office or pre surgery nurse liaison [phone] if any additional questions.
[2024-07-29] VITALS (11 sets, daily range): BP systolic 98–147; BP diastolic 54–91; PULSE 66–84; RESP 14–19; TEMP 36.6–36.8; O2SAT 93–98; BMI 39.6
--- OUTSIDE RECORDS SUMMARY | 2024-07-29 02:49 | XMS_ITS | Encounter Summary ---
Author Organization [employer] Address [address] [place] [address] Care Team Providers Care Prop Making Supervisor Name Role Phone Unavailable Primary Care [...] on file Legal Sex Female 5:20 AM CHEESE SUPERVISOR Gender Identity Not on file Sexual Orientation Not on file documented as of this encounter Plan of Treatment Not on file documented as of this encounter Visit Diagnoses Not on filedocumented in this encounter
--- OUTSIDE RECORDS SUMMARY | 2024-07-29 02:49 | XMS_ITS | Encounter Summary ---
Author Organization [employer] Address [address] [place] [address] Care Team Providers Care Director Of Clinical Education Name Role Phone Unavailable Primary Care Provider [...] on file Legal Sex Female 5:20 AM AUTOMOTIVE FUEL INJECTION SERVICER Gender Identity Not on file Sexual Orientation Not on file documented as of this encounter Plan of Treatment Not on file documented as of this encounter Visit Diagnoses Not on filedocumented in this encounter
--- OUTSIDE RECORDS SUMMARY | 2024-07-29 02:49 | XMS_ITS | Data Portability ---
Author Organization [facility] Address [address] [place] [address] [place] [address] Care Team Providers Care Information Systems Supervisor Name Role Phone LONI ELISE Primary Care [...] with bilateral salpingec marcus (SURG) 2023 025 [id number], [address] [place] [address], [id number], 06/18/2024 13:33:27 cystoscop y (SURG) 2023 025 [id number], [address] [place] [address], [address], 06/12/2024 12:46:27 Imaging US, pelvis 2023 024 [email or web address] [place], [address], [address], [place], [address], 08/04/2023 19:48:45 US, transvagi nal 2023 024 [email or web address] [place], [address], [address], [place], [address], 08/04/2023 19:48:45 Medication Orders None recorded. Patient [...] as clini abrahan warra nted. Not Available [facility] (Lab) [address], [place], [address], 07/28/2023 08:01:02 07/21/19 24 07/21/2023 TRICH OMONA S VAGIN KRISTY (RRNA ) trichomonas vaginalis ribosomal RNA (rrna) Negati ve negati ve Not Available [facility] (Lab) [address], [place], [address], 07/28/2023 08:01:03 07/21/19 24 07/21/2023 CT/GC (URSULA) , THINP REP VIAL chlamydia trachomatis, PCR Negati ve negati ve Not Available [facility] (Lab) [address], [place], [address], 07/28/2023 08:01:03 07/21/19 24 07/21/2023 CT/GC (URSULA) , THINP REP VIAL neisseria gonorrhoeae, PCR Negati ve negati ve Not Available [facility] (Lab) [address], [place], [address], 07/28/2023 08:01:03 08/04/19 24 08/04/2023 US, pelvi s No observ ation record ed. [facility] [address], [place], [address], 08/04/2023 18:01:49 08/04/19 24 08/04/2023 US, trans vagin al No observ ation record ed. [facility] [address], [place], [address], 08/04/2023 18:02:12 08/04/19 24 08/04/2023 US, pelvi s No observ ation record ed. GLADIS Dawson [address], [place], [address], 08/14/2023 11:42:23 Result Notes None recorded. Procedures Surgical History Date Name Laterality Status Provider Name and Address Organization Details Recorded Time 4 Date of Last Pap Smear completed [facility] 08/11/2023 09:56:22 3 Date of Last Mammogram completed [facility] 07/21/2023 10:13:27 4 Tubal Ligation completed [facility] 08/11/2023 09:56:03 3 Caesarean Section completed Reina Perrin [facility] 07/21/2023 10:13:47 Imaging Results Imaging Date Name Status LastModified by Organization Details LastModified Time 08/04/2023 US, pelvis completed [facility] [address], [place], [address], 08/04/2023 18:01:49 08/04/2023 US, transvaginal completed [facility] [address], [place], [address], 08/04/2023 18:02:12 08/04/2023 US, pelvis completed GLADIS Dawson [address], [place], [address], 08/14/2023 11:42:23 Procedure Notes None recorded. Medical Equipment None Reported. Allergies No known drug allergies Medications Name Sig Start Date Stop Date Status Note LastModified by Organization Details LastModified Time metformin 500 mg tablet TAKE 1 TABLET BY MOUTH EVERY DAY WITH THE EVENING MEAL active Not Available Not Available No t Available fluticasone 250 mcg-salmete rol 50 mcg/dose blistr [...] completed Not Available Not Available Not Available peg-electro lyte solution 420 gram oral solution active Not Available Not Available Not Available famotidine [...] Updated DateTime 4 157.48 cm 39.3 kg/m2 36050.3 6 g 151 mm[Hg] 90 mm[Hg] 137 mm[Hg] 87 mm[Hg] [facility] 4 10:44:40 Date Recorded Body height Body mass index (BMI) Body weight Systolic blood pressure Diastolic blood pressure Systolic blood pressure Diastolic blood pressure Provider Name and Address Organization Details Last Updated DateTime 4 157.48 cm 39.1 kg/m2 00331.7 7 g 148 mm[Hg] 84 mm[Hg] 136 mm[Hg] 82 mm[Hg] [facility] 4 10:36:02 Date Recorded Body height Body mass index (BMI) Body weight Systolic blood pressure Diastolic blood pressure Provider Name and Address Organization Details Last Updated DateTime 04/12/2024 157.48 cm 40.8 kg/m2 774301.1 g 148 mm[Hg] 89 mm[Hg] Ana Cook [facility] 14:19:10 Social History Question Answer Notes LastModified by Organizat ion Details LastModified Time Tobacco Smoking Status Former Smoker Reina Perrin andre, [facility] 07/21/2023 10:18:04 Do You Have [...] Or The Highest Degree You Have Received? [id number] Information not available 07/21/2023 What Is Your [...] Anxious, Or Unable To Sleep At Night)? [id number] Information not available 07/21/2023 Do You Use [...] 0 07/21/2023 10:13:16 Brother Diabetes mellitus 12 [email or web address] Not available 2023 14:08:17 Brother Diabetes mellitus Not available 2023 10:22:15 Medical History Condition Response Hepatitis/Liver Disease Y Arthritis Y High Cholesterol Y Hypertension Y Asthma Y Gynecological History Statement/Question Response Abnormal Pap [...] SNOMED-CT Code Diagnosis ICD10 Code Diagnosis Note [id number] MARK Aguiar [place] [address],[place] [address] 07/21/2023 09:50:13 07/21/2023 11:02:06 Dysmenorrhea [id number] N94.6 Detailed health hx obtained and reviewed todaypap/S TI testing updatedpel bradly u/s orderedwil l return for f/u to review and discuss management options Time spent in visit is a total of 35 mins with at least 50% of visit consisting of counseling and review of plan of care. Venereal d isease screening [id number] Z11.3 Screening for malignant neoplasm of cervix 789629010 Z12.4 [id number] [facility] [address],[place] [address] 08/04/2023 16:17:58 08/04/2023 16:55:39 Pain in pelvis 43404584 R10.2 [id number] MARK Aguiar [place] [address],[place] [address] 08/11/2023 10:17:27 08/11/2023 10:56:31 Uterine leiomyoma 96385363 D25.9 Reviewed updated u/s - fibroidsDi scussed [...] and review of plan of care. Dysmenorrhea [id number] N 94.6 [id number] DEBORAH MALONE MD [place] [address] [address] 04/12/2024 14:08:05 04/19/2024 03:35:38 Uterine leiomyoma 05684186 D25.9 - uterus enlarged with multiple leiomyoma- [...] Caban Member ID Guarantor Name 07/21/2023 1 [facility] Erica Grier Luster [id number] Erica Luster 08/04/2023 1 [facility] [id number] Erica Luster 08/11/2023 1 [facility] L Luster [id number] Erica Luster 04/12/2024 1 [facility] [id number] Erica Vargasster Notes Date Note Type Note Provider Name and Address Organization Details Recorded Time 07/21/2023 text/html 42yo [id number] ents for painful periodsperiods painful for the past 1 yrmonthly periods, lasting 4-5 days, about 3 heavier days (changing pads every 2-3 hours)significant cramping during her periods, sometimes has left sided cramping outside of her periodsBTL for BC, SA with steady male partnernormal bowel movementsno urinary symptomsneg d/c, odors, itchinglast pap around 8 yrs ago, no h/o abnormal MARK Aguiar [address], [place], [address], [facility] 07/21/2023 10:58:36 08/11/2023 text/html 42yo [id number] ents for u/s f/u HPI:presents for painful periodsperiods painful for the past 1 yrmonthly periods, lasting 4-5 days, about 3 heavier days (changing pads every 2-3 hours)significant cramping during her periods, sometimes has left sided cramping outside of her periodsBTL for BC, SA with steady male partnernormal bowel movementsno urinary symptomsneg d/c, odors, itchingpap done 07/21/2023 - normalmammogram UTD MARK Aguiar [address], [place], [address], [facility] 08/11/2023 10:54:32 04/12/2024 text/html Patient presents [...] hysterectomy. DEBORAH MALONE MD [address], [place], [address], [facility] 04/18/2024 22:51:43 OBGyn Episode Ob Episode Information Episode Created Date Number of Fetuses Patient Bloodtype Patient rh Status Prepregnancy Weight lbs Domestic Partner Domestic Partner Phone Father Name Sealer Operator Status 07/21/19 24 1 CLOSED Fetus Data First Name Last Name Admitted to NICU Weight (g) Sex Living Outcome Pediatric Complications Fetus ID Race Codes Race Delivery Type 2267.96 M Full Term [id number] Miky Calculation Initial Miky Date Initial Exam [...] Domestic Partner Domestic Partner Phone Father Name Sealer Operator Status 07/21/19 24 1 CLOSED Fetus Data First Name Last Name Admitted to NICU Weight (g) Sex Living Outcome Pediatric Complications Fetus ID Race Codes Race Delivery Type M Full Term [id number] Miky Calculation Initial Miky Date Initial Exam [...]
--- OUTSIDE RECORDS SUMMARY | 2024-07-29 02:49 | XMS_ITS | Encounter Summary ---
Author Organization [employer] Address [address] [place] [address] Care Team Providers Care Wheel Worker Name Role Phone Unavailable Primary Care Provider Unavailabl e Encounter Details Date Type Department Care Team (Late st Contact Info) Description 01/07/[address] 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
--- OUTSIDE RECORDS SUMMARY | 2024-07-29 02:49 | XMS_ITS | CONTINUITY OF CARE DOCUMENT ---
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
--- OUTSIDE RECORDS SUMMARY | 2024-07-29 02:49 | XMS_ITS | Patient Health Summary ---
Author Organization [facility] Address [address] [place] [address] Care Team Providers Care Bulb Packer Name Role Phone Mel Cohen MD Primary Care Provider [phone] [facility] from [facility],non-owned Affiliates and Associated Physician Practices is amultiple site organization consisting of ambulatory clinics and hospital sitesin [place], [place], [place] and [place]. This disclosure is being madepursuant to the Care Everywhere program and may not contain all information available regarding this patient. Last updated 18.[facility] Allergies No known active allergies Medications * [...] Comments Blood Pressure 145/102 06/24/2024 11:30 AM STAFF MIDWIFE/APPRENTICESHIP DIRECTOR Pulse 83 06/24/2024 11:30 AM STAFF MIDWIFE/APPRENTICESHIP DIRECTOR Temperature 37 C (98.6 F) 06/24/2024 9:55 AM STAFF MIDWIFE/APPRENTICESHIP DIRECTOR Respiratory Rate 23 06/24/2024 11:30 AM STAFF MIDWIFE/APPRENTICESHIP DIRECTOR Oxygen Saturation 97% 06/24/2024 11:30 AM STAFF MIDWIFE/APPRENTICESHIP DIRECTOR Inhaled Oxygen Concentration - - Weight 97.5 kg (215 lb) 06/24/2024 9:55 AM STAFF MIDWIFE/APPRENTICESHIP DIRECTOR Height 157.5 cm (5' 2 ) 06/24/2024 9:55 AM STAFF MIDWIFE/APPRENTICESHIP DIRECTOR Body Mass Index 39.32 06/24/2024 9:55 AM STAFF MIDWIFE/APPRENTICESHIP DIRECTOR Procedures * HCG URINE QUAL POCT NOTIFICATION(Performed 06/24/2024) Performed for Preop examination * AR COLONOSCOPY, DIAGNOSTIC(Performed 06/24/2024) Performed for Screen for colon cancer * HCG URINE QUALITATIVE - POCT (IP) INTERFACED(Performed 06/24/2024) * ENDOSCOPY, COLON, SCREENING(Performed 06/24/2024) Results * HCG URINE QUAL POCT NOTIFICATION (06/24/2024 11:00 AM STAFF MIDWIFE/APPRENTICESHIP DIRECTOR) Comment Notification Label Only - See Separate Report 06/24/2024 11:00 AM STAFF MIDWIFE/APPRENTICESHIP DIRECTOR [facility] Urine URINE / Unknown 9:42 AM STAFF MIDWIFE/APPRENTICESHIP DIRECTOR Francisco Alvarado MD LAB - URINALYSIS ORD ERABLES Performing Organization Address City/[facility] Co de Phone Number [facility] [address] [place] [address] * HCG URINE QUALITATIVE - POCT (IP) INTERFACED (06/24/2024 9:47 AM STAFF MIDWIFE/APPRENTICESHIP DIRECTOR) HCG Qual Urine Negative Negative 06/24/2024 9:53 AM STAFF MIDWIFE/APPRENTICESHIP DIRECTOR [facility] Urine URINE / Unknown 06/24/2024 9 :47 AM STAFF MIDWIFE/APPRENTICESHIP DIRECTOR 06/24/2024 9:53 AM STAFF MIDWIFE/APPRENTICESHIP DIRECTOR Francisco Alvarado MD LAB - POINT OF CARE ORDERABLES [facility] [address] [place] [address] * Endoscopy, Colon, Screening (06/24/2024 7:46 AM STAFF MIDWIFE/APPRENTICESHIP DIRECTOR) Report Endoscopy POC _ Patient Name: Erica Mora Procedure Date: 06/24/2024 7:46 AM Date of : 1980 Admit Type: Outpatient Age: 43 Gender: Female Ethnicity: Not or Race: Black or Attending MD: Francisco Alvarado MD, [id number] _ Procedure: Colonoscopy Indications: Screening for colorectal malignant neoplasm, This is the patient's first colonoscopy Providers: Francisco Alvarado MD (Doctor), Danica Rausch RN, Jazmyn Restrepo RN Referring MD: Mariangel Lagos DO (Referring MD) [...] screening purposes. Procedure Code(s): --- Professional --- 02359, Colonoscopy, flexible; diagnostic, including collection of specimen(s) by brushing or washing, when performed (separate procedure) --- Technical --- 00544, Colonoscopy, flexible; diagnostic, including collection of specimen(s) by brushing or washing, when performed (separate procedure) Diagnosis Code(s): --- Professional --- Z12.11, Encounter for screening for malignant neoplasm of colon --- Technical --- Z12.11, Encounter for screening for malignant neoplasm of colon CPT copyright 2020 [employer]. All rights reserved. The codes documented in this report are preliminary and upon devops developer review may be revised to meet current compliance requirements. Francisco Alvarado MD 06/24/2024 11:15:03 AM This report has been signed electronically. Number of Addenda: 0 Note Initiated On: 06/24/2024 7:46 AM [facility] 06/24/2024 7:46 AM STAFF MIDWIFE/APPRENTICESHIP DIRECTOR Francisco Alvarado MD GI PROCEDURE ORDERAB LES [facility] Care Teams Bulb Packer Relationship Specialty Start Date End Date Mel Cohen MD [address] [place] [id number] PCP - General Family Medicine 08/02/12
--- OUTSIDE RECORDS SUMMARY | 2024-07-29 02:49 | XMS_ITS | Encounter Summary ---
Author Organization [facility] Address 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
--- OUTSIDE RECORDS SUMMARY | 2024-07-29 02:49 | XMS_ITS | Encounter Summary ---
Author Organization [facility] Address 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
--- OUTSIDE RECORDS SUMMARY | 2024-07-29 02:49 | XMS_ITS | Continuity of Care Document ---
Author Organization [facility] Address [address] [place] [address] Phone Care Team Providers Care Nonprofit Manager Name Role Phone Francisco Alvarado MD Unavailable [...] INC PLATELETS AND DIFFERENTIAL COMPREHEN METABOLIC PANEL [facility] 4 HEMOGLOBIN A1C HGA1C, GLYCO LIPID PANEL ROUTINE VENIPUNCTURE PREVENTATIVE-EST: 40-64 BODY MASS INDEX DOCD SYST BP LT 130 MM HG DIAST BP 80-89 MM HG CBC, INC PLATELETS AND DIFFERENTIAL COMPREHEN METABOLIC PANEL [facility] 4 FERRITIN LEVEL HEMOGLOBIN A1C HGA1C, GLYCO IRON (FE), TOTAL TIBC, & % SATURATION LIPID PANEL ROUTINE VENIPUNCTURE OFFICE [id number] BODY MASS INDEX DOCD SYST BP LT 130 MM HG DIAST BP 80-89 MM HG DSCHRG MED/CURRENT MED MERGE Transitional Care- 14 Days Of Discharge BODY MASS INDEX DOCD SYST BP GE 130 - 139MM HG DIAST BP 80-89 MM HG DSCHRG MED/CURRENT MED MERGE HEMOGLOBIN A1C HGA1C, GLYCO ROUTINE VENIPUNCTURE Pt inelig neg nickn mayur OFFICE [id number] BODY MASS INDEX DOCD SYST BP LT 130 MM HG DIAST BP 80-89 MM HG CBC, INC PLATELETS AND DIFFERENTIAL FERRITIN LEVEL IRON (FE), TOTAL TIBC, & % SATURATION ROUTINE VENIPUNCTURE NUTRITIONAL THERAPY; INITIAL ASSESSMENT AND INTERVENTION, INDIVIDUAL, EACH 15 MS BODY MASS INDEX DOCD CBC, INC PLATELETS [...] THYROID STIMULATION HORMONE(TSH) 2018 ROUTINE VENIPUNCTURE OFFICE [id number] BODY MASS INDEX DOCD SYST BP GE 130 - 139MM HG DIAST BP < 80 MM HG Advance Directives Directive Yes / No Effective Date File Name No Information Encounters Encounter Description Practice Location Reason(s) For Visit Diagnoses Date Provider Providers Copied on Encounter [facility], [address], [place], [place], [address] , tel:[phone] [facility] Outpatient No Information 5 Christiano Singh. [address] [place] [address], [id number], [place]. tel:[phone] Referring Provider: Francisco Alvarado, [address] [place] [address], [address] . tel:[phone] [facility], [address], [place], [place], [address] , [place] tel:[phone] [facility] Internal Medicine No Information 4 Demond August. [address], [address], [id number], [place]. tel:[phone] [facility], [address], [place], [place], [address] , [place] tel:[phone] [facility] No Information 4 Christiano Singh. [address] [place] [address], [id number], [place]. tel:[phone] [facility], [address], [place], [place], [address] , tel:[phone] [facility] Internal Medicine No Information 4 Demond August. [address], [address], [place], [place], [address], . tel:[phone] PREVENTATIVE- EST: 40-64 [facility], [address], [place], [place], [address] , tel: [phone] [facility] Internal Medicine Chronic Conditions (chief complaint)c hronic conditions (chief complaint) Encounter for general adult medical examination without abnormal findingsHyperg lycemia, unspecifiedEss ential (primary) hypertensionNo nalcoholic steatohepatiti s (SHERIDAN)Other sleep apneaBipolar disorder, unspecifiedOth er asthmaMixed hyperlipidemia Body mass index [BMI] 40.0-44.9, adult 4 Demond August. [address], [address], [place], [place], [address], . tel:[phone] Referring Provider: Mariangel Lagos, [address] [facility], [place], [address] . tel:[phone] [facility], [address], [place], [place], [address] , tel:[phone] [facility] Internal Medicine No Information 4 Demond August. [address], [address], [place], [place], [address], . tel:[phone] [facility], [address], [place], [place], [address] , tel:[phone] [facility] Internal Medicine No Information 4 Tavia Mishra. [address], [address], [place], [place], [address], . tel:[phone] OFFICE [id number] CHEY [facility], [address], [place], [place], [address] , tel:[phone] [facility] Internal Medicine Chronic Conditions (chief complaint)c hronic conditions (chief complaint) Other asthmaAnemia, unspecifiedHyp erglycemia, unspecifiedFat ty (change of) liver, not elsewhere classifiedEsse ntial (primary) hypertensionNo nalcoholic steatohepatiti s (SHERIDAN)Mixed hyperlipidemia Bipolar disorder, unspecifiedBod y mass index [BMI] 38.0-38.9, adult 4 Demond August. [address], [address], [place], [place], [address], . tel:[phone] Referring Provider: Mariangel Lagos, [address], [place], [address] . tel:[phone] Transitional Care- 14 Days Of Discharge [facility], [address], [place], [place], [address] , tel:[phone] [facility] Internal [facility] asthma (chief complaint) Body mass index [BMI] 37.0-37.9, adultExacerbat ion of asthma, unspecified asthma severity, unspecified whether persistent 3 Lambert Adrian. [address], [place] [address] [place] [address], [id number], [place]. tel:[phone] Referring Provider: Mariangel Lagos, [address] [facility], [place], [address] . tel:[phone] [facility], [address], [place], [place], [address] , [phone] [facility] No Information 3 Demond August. [address], [address], [place], [place], [address], [place]. tel:[phone] Referring Provider: Mariangel Lagos, [address] [facility] [address], [place], [address] . tel:[phone] [facility], [address], [place], [place], [address] , tel:[phone] [facility] Medicine Elevated fasting glucose 3 Demond August. [address], [address], [place], [place], [address], . tel:[phone] Referring Provider: Mariangel Lagos, [address], [place], [address] . tel:[phone] [facility], [address], [place], [place], [address] , tel:[phone] [facility] Medicine No Information 3 Demond August. [address], [address], [place], [place], [address], [place]. tel:[phone] OFFICE [id number]-ASP CHEY [facility], [address], [place], [place], [address] , [place] tel:[phone] [facility] Patient encounter (chief complaint)C hronic Conditions (chief complaint)c hronic conditions (chief complaint) Bipolar disorder, unspecifiedHyp erglycemia, unspecifiedEss ential (primary) hypertensionAn emia, unspecified typeBody mass index [BMI] 36.0-36.9, adultRheumatoi d arthritis, unspecified 3 Demond August. [address], [address], [place], [place], [address], [place]. tel:[phone] Referring Provider: Mariangel Lagos, [address], [place], [address] . tel:[phone] [facility], [address], [place], [place], [address] , [phone] [facility] Dietary counseling and surveillancePr ediabetesBody mass index [BMI] 38.0-38.9, adult 3 Cheyenne Mishra. [address], [facility] [address], [place], [place], [address], [place]. tel:[phone] Referring Provider: [address], [place], [address] . tel:[phone] PREVENTATIVE- EST: 40-64 [facility], [address], [place], [place], [address] , tel:[phone] [facility] Chronic Conditions (chief complaint)c hronic conditions (chief complaint) Essential (primary) hypertensionBi polar disorder, unspecifiedMix ed hyperlipidemia Encounter for general adult medical examination with abnormal findingsBody mass index [BMI] 37.0-37.9, adultAnemia, unspecified type 3 Demond August. [address], [address], [place], [place], [address], [place]. tel:[phone] Referring Provider: Mariangel Lagos, [address], [place], [address] . tel:[phone] [facility], [address], [place], [place], [address] , tel: [phone] [facility] Internal [facility] Elevated liver enzymes 2 Demond August. [address], [address], [place], [place], [address], [place]. [phone] Referring Provider: Mariangel Lagos, [address], [place], [address] . tel:[phone] PREVENTATIVE- EST: 40-64 [facility], [address], [place], [place], [address] , tel: [phone] [facility] Internal [facility] Chronic Conditions (chief complaint) Bipolar disorder, unspecifiedEnc ounter for general adult medical examination with abnormal findingsEssent ial (primary) hypertensionOt her asthma 2 Demond August. [address], [address], [place], [place], [address], [place]. tel:[phone] Referring Provider: [address], [place], [address] . tel:[phone] [facility], [address], [place], [place], [address] , tel:[phone] [facility] Internal Medicine GoiterScreenin g mammogram, encounter for 1 Demond August. [address], [address], [place], [place], [address], [place]. tel:[phone] PREVENTATIVE- EST: 40-64 [facility], [address], [place], [place], [address] , tel: [phone] [facility] Medicine z00 (chief complaint) GoiterEncounte r for general adult medical examination without abnormal findingsBipola r 1 disorderHypert ension, unspecified typeBody mass index (BMI) 35.0-35.9, adult Apr-3 0-202 1 Demond August. [address], [address], [place], [place], [address], [place]. tel:[phone] Referring Provider: Mariangel Lagos, [address], [place], [address] . tel:[phone] OFFICE [id number] CHEY [facility], [address], [place], [place], [address] , tel: [phone] [facility] syncope (chief complaint) Bradycardia, unspecifiedBod y mass index (BMI) 33.0-33.9, adult 9 Jaskaran Osman. [address], [address], [place], [place], [address], [place]. tel:[phone] Referring Provider: Jacqui Jessica, [address], [place], [address] . tel:[phone] [facility], [address], [place], [place], [address] , [place] tel:[phone] [facility] Body mass index (BMI) 33.0-33.9, [facility] 9 Jaskaran Osman. [address], [address], [place], [place], [address], [place]. tel:[phone] Referring Provider: Jacqui Jessica, [address], [place], [address] . tel:[phone] [facility], [address], [place], [place], [address] , tel: [phone] [facility] Body mass index (BMI) 34.0-34.9, adultEssential hypertension 9 Jaskaran Osman. [address], [address], [place], [place], [address], [place]. tel:[phone] Referring Provider: Jacqui Jessica, [address], [place], [address] . tel:[phone] [facility], [address], [place], [place], [address] , tel: [phone] [facility] Body mass index (BMI) 33.0-33.9, adultEssential hypertensionFa china history of diabetes mellitus 9 Jaskaran Osman. [address], [address], [place], [place], [address], [place]. tel:[phone] Referring Provider: Jacqui Jessica, [address] [facility], [place], [address] . tel:[phone] [facility], [address], [place], [place], [address] , tel: [phone] [facility] Encounter for gynecological examination (general) (routine) without abnormal findings 7 Jaskaran Osman. [address], [address], [place], [place], [address], [place]. tel:[phone] Referring Provider: Jacqui Jessica, [address], [place], [address] . tel:[phone] [facility], [address], [place], [place], [address] , tel:[phone] [facility] ASTHMA NOS 4 Jaskaran Osman. [address], [address], [place], [place], [address], [place]. tel:[phone] Referring Provider: Jacqui Jessica, [address], [place], [address] . tel:[phone] [facility], [address], [place], [place], [address] , tel: [phone] [facility] Well woman exam with routine gynecological exam 2 8-201 4 Jaskaran Osman. [address], [address], [place], [place], [address], [place]. tel:[phone] Referring Provider: Jacqui Jessica, [address], [place], [address] . tel:[phone] [facility], [address], [place], [place], [address] , tel: [phone] [facility] No Information 0 6-201 1 Jaskaran Osman. [address], [address], [place], [place], [address], [place]. tel:[phone] [facility], [address], [place], [place], [address] , tel: [phone] [facility] ASTHMA NOSSCREEN LIPOID DISORDERS 4-200 7 Jaskaran Osman. [address], [address], [place], [place], [address], [place]. tel:[phone] [facility], [address], [place], [place], [address] , tel: [phone] [facility] LONG-TERM USE MEDS NECSCREEN-THYR OID DISORDERACUTE PHARYNGITISVAC SHAQ FOR INFLUENZA Dec-0 7-200 5 Jaskaran Osman. [address], [address], [place], [place], [address], . tel:[phone] [facility], [address], [place], [place], [address] , tel: [phone] [facility] ACUTE URI NOS 3-200 5 [facility]. [address] [place] [address], [place], [address], [place]. [facility], [address], [place], [place], [address] , tel: [phone] [facility] RHEUMATOID ARTHRITISNONSU PP OTITIS MEDIA NOS 5 Jaskaran Osman. [address], [address], [place], [place], [address], [place]. tel: [phone] [facility], [address], [place], [place], [address] , tel: [phone] [facility] STREP SORE THROAT 5 Jaskaran Osman. [address], [address], [place], [place], [address], [place]. tel: [phone] [facility], [address], [place], [place], [address] , tel:[phone] [facility] ROUTINE MEDICAL EXAM 5 Conversion Doctor. [address] [place] [address], [facility], [place]. [facility], [address], [place], [place], [address] , tel: [phone] [facility] No Information 4 Jaskaran Osman. [address], [address], [place], [place], [address], [place]. tel:[phone] [facility], [address], [place], [place], [address] , tel: [phone] [facility] HYPERLIPIDEMIA NEC/NOSMALAISE AND FATIGUE NEC 4 Jaskaran Osman. [address], [address], [place], [place], [address], [place]. tel:[phone] Family History Family Member Type Diagnosis Age At Onset No Information Immunizations Vaccine Date Status Comments Fluzone Trivalent, preservat teresa free, split virus, 0.5mL dosage administered Source: Public Agency Fluzone Quad, preservative f ree, split virus, 0.5mL dosage administered Source: Public Agency Pfizer Comirnatjared COVID vacci ne, zoe-sucrose, 30mcg/0.3mL dose, 12 years and older administered Source: Source Unspe cified Pfizer Comirnaty COVID vaccgayla ne, zoe-sucrose, 30mcg/0.3mL dose, 12 years and older administered Source: Source Unspe cified 11584 - Influenza administered Source: So urce Unspecified Payers Payer name Insurance type Covered constitution party ID Authoriza tiuday(s) [facility] CI [id number] Social History Type Description Quantity Date Captured [...] Order DI AGNOSTIC MAMMOGRAM (CAD) BOTH BREASTS ([address]130), Sent on: Sent Future Order: Radiology Order SC REENING MAMMOGRAM (CAD) Bilateral breast (03462), Body Site: breast, Sent on: Sent History Of Present Illness Encounter Date Complaint History Of Prese nt Illness Chronic Conditions *See Chronic Conditions HPI chronic conditions *See Chronic Conditions [facility] Chronic Conditions *See Chronic Conditions [facility] chronic conditions *See Chronic Conditions [facility] asthma Hosp fu. Pt was recently admitted for URI sx and asthma flair. Viral cultures neg. She was dc on pred taper, albuterol, singulair, Symbicort. She is improving> No longer needing albuterol. She has few days left of pred taper. Has fu tigist with pulm upcoming. chronic conditions *See Chronic Conditions [facility] Chronic Conditions *See Chronic Conditions [facility] Patient encounter Chief complain t: htn.Last visit her ac was 6.3, she has cut out fast food and soda and has lost 10 lbs in a few weeks. She has seen the wallcovering texturer which was very helpful. She has not [...] track. She was supposed to find an DUCT MAKER to discuss her irregular periods but she has not done this yet.Since restarting her Abilify her moods have been very well controlled. No longer cycling quickly through depression and dom. Chronic Conditions *See Chronic Conditions [facility] chronic conditions *See Chronic Conditions [facility] Chronic Conditions *See Chronic Conditions [facility] z00 patient here for her routine yearly physical. She has been doing very well. 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 She has two sons, one is 18 and has autism, the other is 17 and will be going to [employer] next year for college. Her mood has [...] her to make an appointment with the DUCT MAKER to discuss. Check CBC, iron panel today. Continue oral iron replacement. Related to Anemia, unspecified Giving encouragement to exercise Related to Body mass index (BMI) 38.0-38.9, adult Dietary management e ducation, guidance, and [...] asthma severity, unspecified whether persistent Disease process Giving encouragement to exercise Related to Body mass index (BMI) 37.0-37.9, adult Dietary management e ducation, guidance, and counseling Related to Body mass index (BMI) 37.0-37.9, adult likely due to irregu lar and heavy periods that she has been having lately. She was post to follow-up with OB, however she has not made this appointment yet. Will recheck CBC with iron panel today and encouraged her to make an appointment with DUCT MAKER. Related to Anemia, unspecified type Doing well [...] or <115/70. Related to Essential (primary) hypertension Giving encouragement to exercise Related to Body mass index (BMI) 37.0-37.9, adult Dietary management e ducation, guidance, and [...] as well. Related to Bipolar disorder, unspecified Giving encouragement to exercise Related to Body mass index (BMI) 37.0-37.9, adult Dietary management e ducation, guidance, and [...]
--- OUTSIDE RECORDS SUMMARY | 2024-07-29 02:49 | XMS_ITS | Encounter Summary ---
Author Organization [employer] Address 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
--- OUTSIDE RECORDS SUMMARY | 2024-07-29 02:49 | XMS_ITS | Encounter Summary ---
Author Organization [facility] Address 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
--- OUTSIDE RECORDS SUMMARY | 2024-07-29 02:49 | XMS_ITS | Encounter Summary ---
Author Organization [facility] Address 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
--- OUTSIDE RECORDS SUMMARY | 2024-07-29 02:49 | XMS_ITS | Encounter Summary ---
Author Organization [employer] Address 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
--- OUTSIDE RECORDS SUMMARY | 2024-07-29 02:49 | XMS_ITS | Encounter Summary ---
Author Organization [employer] Address [address] [place] [address] Care Team Providers Care Surgical Sales Representative Name Role Phone Unavailable Primary Care [...] on file Legal Sex Female 5:20 AM ENROLLMENT NURSE Gender Identity Not on file Sexual Orientation Not on file documented as of this encounter Plan of Treatment Not on file documented as of this encounter Visit Diagnoses Not on filedocumented in this encounter
--- OUTSIDE RECORDS SUMMARY | 2024-07-29 02:49 | XMS_ITS | Encounter Summary ---
Author Organization [employer] Address 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
--- OUTSIDE RECORDS SUMMARY | 2024-07-29 02:49 | XMS_ITS | Encounter Summary ---
Author Organization [employer] Address [address] [place] [address] Care Team Providers Care Missing Persons Investigator Name Role Phone Unavailable Primary Care Provider [...] on file Legal Sex Female 5:20 AM STUDENT SUCCESS COACH Gender Identity Not on file Sexual Orientation Not on file documented as of this encounter Plan of Treatment Not on file documented as of this encounter Visit Diagnoses Diagnosis Abnormality in heart rate/rhythm, delivered, with or without mention of antepartum condition- Primary documented in this encounter
--- OUTSIDE RECORDS SUMMARY | 2024-07-29 02:49 | XMS_ITS | Encounter Summary ---
Author Organization [employer] Address 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
--- OUTSIDE RECORDS SUMMARY | 2024-07-29 02:49 | XMS_ITS | Encounter Summary ---
Author Organization [employer] Address [address] [place] [address] Care Team Providers Care Applications System Analyst Name Role Phone Unavailable Primary Care Provider Unavailabl e Encounter Details Date Type Department Care Team (Late st Contact Info) Description 09/19/2002 Outpatient Historical [facility] M[facility] and [facility] [address] [place] [address] José Gonzáles MD [address] [place] [address] Social History Tobacco Use Types Packs/Day Years Used Date Smoking Tobacco: Never Assessed Comments Unknown Sex and Gender Information Value Date Recorded Sex Assigned at Not on file Legal Sex Female 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
--- OUTSIDE RECORDS SUMMARY | 2024-07-29 02:49 | XMS_ITS | Encounter Summary ---
Author Organization [facility] Address 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
--- OUTSIDE RECORDS SUMMARY | 2024-07-29 02:49 | XMS_ITS | Encounter Summary ---
Author Organization [employer] Address 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
--- OUTSIDE RECORDS SUMMARY | 2024-07-29 02:49 | XMS_ITS | Encounter Summary ---
Author Organization [facility] Address 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
--- OUTSIDE RECORDS SUMMARY | 2024-07-29 02:49 | XMS_ITS | Clinical Summary ---
Author Organization [facility] Address [address] [place] [address] Care Team Providers Care Soda Flaker Name Role Phone Unavailable Primary Care Provider [...]
--- OUTSIDE RECORDS SUMMARY | 2024-07-29 02:50 | XMS_ITS | Referral Summary ---
Author Organization [facility] Address [address] [facility] [place] [address] Care Team Providers Care Local Company Tanker Driver Name Role Phone Mel Cohen MD Primary Care Provider [phone] Source Comments [facility],non-owned Affiliates and Associated Physician Practices is amultiple site organization consisting of ambulatory clinics and hospital sitesin [place], [place], [place] and [place]. This disclosure is being madepursuant to the Care Everywhere program and may not contain all information available regarding this patient. Last updated 18.[facility] Encounters Date Type Department Care Team Description 06/24/2024 Travel 06/24/2024 10:49 AM FRONT END ENGINEER Anesthesia Event [facility] [place] [facility] [address] [place] [address] Dio Santizo MD Will, Margaret H, APRN-FISHER CLAM 06/24/2024 10:00 AM FRONT END ENGINEER - 06/24/2024 10:30 AM FRONT END ENGINEER Surgery [facility] [place] [facility] [address] [place] [address] Francisco Alvarado MD COLONOSCOPY SCREEN 06/24/2024 9:01 AM FRONT END ENGINEER - 06/24/2024 11:54 AM FRONT END ENGINEER Hospital Encounter [facility] [place] [facility] [address] [place] [address] Francisco Alvarado MD Surgery General Discharge Disposition: [...] Comments Blood Pressure 145/102 06/24/2024 11:30 AM FRONT END ENGINEER Pulse 83 06/24/2024 11:30 AM FRONT END ENGINEER Temperature 37 C (98.6 F) 06/24/2024 9:55 AM FRONT END ENGINEER Respiratory Rate 23 06/24/2024 11:30 AM FRONT END ENGINEER Oxygen Saturation 97% 06/24/2024 11:30 AM FRONT END ENGINEER Inhaled Oxygen Concentration - - Weight 97.5 kg (215 lb) 06/24/2024 9:55 AM FRONT END ENGINEER Height 157.5 cm (5' 2 ) 06/24/2024 9:55 AM FRONT END ENGINEER Body Mass Index 39.32 06/24/2024 9:55 AM FRONT END ENGINEER Plan of Treatment Not on file Procedures Procedure Name Priority Date/Time Associated Diagnosis Comments HCG URINE QUAL POCT NOTIFICATION Routine 06/24/2024 11:00 AM FRONT END ENGINEER Preop examination ID COLONOSCOPY, DIAGNOSTIC 06/24/2024 10:00 AM FRONT END ENGINEER Screen for colon cancer HCG URINE QUALITATIVE - POCT (IP) INTERFACED Routine 06/24/2024 9:47 AM FRONT END ENGINEER ENDOSCOPY, COLON, SCREENING Routine 06/24/2024 7:46 AM FRONT END ENGINEER from Last 3 Months Results * HCG URINE QUAL POCT NOTIFICATION (06/24/2024 11:00 AM FRONT END ENGINEER) Comment Notification Label Only - See Separate Report 06/24/2024 11:00 AM FRONT END ENGINEER [facility] Urine URINE / Unknown 9:42 AM FRONT END ENGINEER Francisco Alvarado MD LAB - URINALYSIS ORD ERABLES [facility] [address] [place] [address] * HCG URINE QUALITATIVE - POCT (IP) INTERFACED (06/24/2024 9:47 AM FRONT END ENGINEER) HCG Qual Urine Negative Negative 06/24/2024 9:53 AM FRONT END ENGINEER [facility] Urine URINE / Unknown 06/24/2024 9 :47 AM FRONT END ENGINEER 06/24/2024 9:53 AM FRONT END ENGINEER Francisco Alvarado MD LAB - POINT OF CARE ORDERABLES Performing Organization Address City/[facility]/ZIP Co de Phone Number [facility] [address] [place] [id number] * Endoscopy, Colon, Screening (06/24/2024 7:46 AM FRONT END ENGINEER) Report Endoscopy POC _ Patient Name: Erica Mora Procedure Date: 06/24/2024 7:46 AM Date of : 1980 Admit Type: Outpatient Age: 43 Gender: Female Ethnicity: Not or Race: Black or Attending MD: Francisco Alvarado MD, [id number] _ Procedure: Colonoscopy Indications: Screening for colorectal [...] screening purposes. Procedure Code(s): --- Professional --- 91235, Colonoscopy, flexible; diagnostic, including collection of specimen(s) by brushing or washing, when performed (separate procedure) --- Technical --- 06674, Colonoscopy, flexible; diagnostic, including collection of specimen(s) by brushing or washing, when performed (separate procedure) Diagnosis Code(s): --- Professional --- Z12.11, Encounter for screening for malignant neoplasm of colon --- Technical --- Z12.11, Encounter for screening for malignant neoplasm of colon CPT copyright 2020 [employer]. All rights reserved. The codes documented in this report are preliminary and upon engineer internship review may be revised to meet current compliance requirements. Francisco Alvarado MD 06/24/2024 11:15:03 AM This report has been signed electronically. Number of Addenda: 0 Note Initiated On: 06/24/2024 7:46 AM [facility] 06/24/2024 7:46 AM FRONT END ENGINEER Francisco Alvarado MD GI PROCEDURE ORDERAB LES Performing Organization Address City/State/[facility] Co de Phone Number [facility] from Last 3 Months Care Teams Local Company Tanker Driver Relationship Specialty Start Date End Date Mel Cohen MD [address] [facility] [address] [place] [address] PCP - General Family Medicine 08/02/12
--- OUTSIDE RECORDS SUMMARY | 2024-07-29 02:50 | XMS_ITS | Encounter Summary ---
Author Organization [facility] [employer] Address 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
--- OUTSIDE RECORDS SUMMARY | 2024-07-29 02:50 | XMS_ITS | Encounter Summary ---
Author Organization [facility] Address 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
--- OUTSIDE RECORDS SUMMARY | 2024-07-29 02:50 | XMS_ITS | Encounter Summary ---
Author Organization [facility] Address [address] [place] [address] Care Team Providers Care Cigar Sorter Name Role Phone Unavailable Primary Care Provider [...] file Legal Sex Female 5:20 AM REGISTERED NURSE TEACHER Gender Identity Not on file Sexual Orientation Not on file documented as of this encounter Plan of Treatment Not on file documented as of this encounter Visit Diagnoses Not on filedocumented in this encounter
--- OUTSIDE RECORDS SUMMARY | 2024-07-29 02:50 | XMS_ITS | Encounter Summary ---
Author Organization [facility] Address 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
--- OUTSIDE RECORDS SUMMARY | 2024-07-29 02:50 | XMS_ITS | Clinical Summary ---
Author Organization [facility] [employer] Address [address] [facility] [place] [address] Care Team Providers Care General Service Officer Name Role Phone Mel Cohen MD Primary Care Provider [phone] Source Comments [facility] [employer],non-owned Affiliates and Associated Physician Practices is amultiple site organization consisting of ambulatory clinics and hospital sitesin [place], [place], [place] and [place]. This disclosure is being madepursuant to the Care Everywhere program and may not contain all information available regarding this patient. Last updated 18.[facility] [employer] Allergies No known active allergies Medications * [...] Department Care Team Description 06/24/2024 10:49 AM SURVEY FIELD TECHNICIAN Anesthesia Event [facility] [place] [facility] [address] [place] [address] Dio Santizo MD Will, Margaret H PRICER-AC 06/24/2024 10:00 AM SURVEY FIELD TECHNICIAN - 06/24/2024 10:30 AM SURVEY FIELD TECHNICIAN Surgery [facility] [place] [facility] [address] [place] [address] Francisco Alvarado MD COLONOSCOPY SCREEN 06/24/2024 9:01 AM SURVEY FIELD TECHNICIAN - 06/24/2024 11:54 AM SURVEY FIELD TECHNICIAN Hospital Encounter [facility] [place] [facility] [address] [place] [address] Francisco Alvarado MD Surgery General Discharge Disposition: [...] Comments Blood Pressure 145/102 06/24/2024 11:30 AM SURVEY FIELD TECHNICIAN Pulse 83 06/24/2024 11:30 AM SURVEY FIELD TECHNICIAN Temperature 37 C (98.6 F) 06/24/2024 9:55 AM SURVEY FIELD TECHNICIAN Respiratory Rate 23 06/24/2024 11:30 AM SURVEY FIELD TECHNICIAN Oxygen Saturation 97% 06/24/2024 11:30 AM SURVEY FIELD TECHNICIAN Inhaled Oxygen Concentration - - Weight 97.5 kg (215 lb) 06/24/2024 9:55 AM SURVEY FIELD TECHNICIAN Height 157.5 cm (5' 2 ) 06/24/2024 9:55 AM SURVEY FIELD TECHNICIAN Body Mass Index 39.32 06/24/2024 9:55 AM SURVEY FIELD TECHNICIAN Plan of Treatment Health Maintenance Due Date [...] QUAL POCT NOTIFICATION Routine 06/24/2024 11:00 AM SURVEY FIELD TECHNICIAN Preop examination ME COLONOSCOPY, DIAGNOSTIC 06/24/2024 10:00 AM SURVEY FIELD TECHNICIAN Screen for colon cancer HCG URINE QUALITATIVE - POCT (IP) INTERFACED Routine 06/24/2024 9:47 AM SURVEY FIELD TECHNICIAN ENDOSCOPY, COLON, SCREENING Routine 06/24/2024 7:46 AM SURVEY FIELD TECHNICIAN from Last 3 Months Results * HCG URINE QUAL POCT NOTIFICATION (06/24/2024 11:00 AM SURVEY FIELD TECHNICIAN) Comment Notification Label Only - See Separate Report 06/24/2024 11:00 AM SURVEY FIELD TECHNICIAN [facility] Urine URINE / Unknown 9:42 AM SURVEY FIELD TECHNICIAN Francisco Alvarado MD LAB - URINALYSIS ORD ERABLES Performing Organization Address City/[facility] Co de Phone Number [facility] [address] [place] [address] * HCG URINE QUALITATIVE - POCT (IP) INTERFACED (06/24/2024 9:47 AM SURVEY FIELD TECHNICIAN) HCG Qual Urine Negative Negative 06/24/2024 9:53 AM SURVEY FIELD TECHNICIAN [facility] Urine URINE / Unknown 06/24/2024 9 :47 AM SURVEY FIELD TECHNICIAN 06/24/2024 9:53 AM SURVEY FIELD TECHNICIAN Francisco Alvarado MD LAB - POINT OF CARE ORDERABLES Performing Organization Address [facility] Co de Phone Number [facility] [address] [place] [address] * Endoscopy, Colon, Screening (06/24/2024 7:46 AM SURVEY FIELD TECHNICIAN) Report Endoscopy POC _ Patient Name: Erica Mora Procedure Date: 06/24/2024 7:46 AM Date of : 1980 Admit Type: Outpatient Age: 43 Gender: Female Ethnicity: Not or Race: Black or Attending MD: Francisco Alvarado MD, [id number] _ Procedure: Colonoscopy Indications: Screening for colorectal [...] screening purposes. Procedure Code(s): --- Professional --- 60418, Colonoscopy, flexible; diagnostic, including collection of specimen(s) by brushing or washing, when performed (separate procedure) --- Technical --- 16557, Colonoscopy, flexible; diagnostic, including collection of specimen(s) by brushing or washing, when performed (separate procedure) Diagnosis Code(s): --- Professional --- Z12.11, Encounter for screening for malignant neoplasm of colon --- Technical --- Z12.11, Encounter for screening for malignant neoplasm of colon CPT copyright 2020 [employer]. All rights reserved. The codes documented in this report are preliminary and upon dietitian consultant review may be revised to meet current compliance requirements. Francisco Alvarado MD 06/24/2024 11:15:03 AM This report has been signed electronically. Number of Addenda: 0 Note Initiated On: 06/24/2024 7:46 AM [facility] 06/24/2024 7:46 AM SURVEY FIELD TECHNICIAN Francisco Alvarado MD GI PROCEDURE ORDERAB LES [facility] from Last 3 Months Care Teams General Service Officer Relationship Specialty Start Date End Date Mel Cohen MD [address] [facility] [address] [place] [address] PCP - General Family Medicine 08/02/12
--- OUTSIDE RECORDS SUMMARY | 2024-07-29 02:50 | XMS_ITS | Encounter Summary ---
Author Organization [employer] Address [address] [place] [address] Care Team Providers Care Enrobing Machine Operator Name Role Phone Unavailable Primary Care Provider [...] on file Legal Sex Female 5:20 AM NURSE QUALITY Gender Identity Not on file Sexual Orientation Not on file documented as of this encounter Plan of Treatment Not on file documented as of this encounter Visit Diagnoses Not on filedocumented in this encounter
--- OUTSIDE RECORDS SUMMARY | 2024-07-29 02:50 | XMS_ITS | Clinical Summary ---
Author Organization [facility] [employer] Address [address] [place] [address] Care Team Providers Care Textile Bag Sewer Name Role Phone Unavailable Primary Care Provider [...] STL ABSTRACTION Provider, Abstract 05/27/2024 1:30 PM MANAGER ROUTE Ancillary Procedure [address] [address] Mariangel Lagos DO Encounter for screening mammogram for malignant neoplasm of breast 05/07/2024 External Device Data STL ABSTRACTION Provider, Abstract from Last 3 Months Social History Tobacco Use Types Packs/Day Years Used Date Smoking Tobacco: Never Smokeless Tobacco: Never Comments No Sex and Gender Information Value Date Recorded Sex Assigned at Not on file Legal Sex Female 5:20 AM MANAGER ROUTE Gender Identity Not on file Sexual Orientation Not on file Last Filed Vital Signs Vital Sign Reading Time Taken Comments Blood Pressure 167/109 06/07/2018 1:54 PM MANAGER ROUTE Pulse 63 06/07/2018 1:54 PM MANAGER ROUTE Temperature 36.8 C (98.2 F) 06/07/2018 1:54 PM MANAGER ROUTE Respiratory Rate 18 06/07/2018 1:54 PM MANAGER ROUTE Oxygen Saturation 99% 06/07/2018 1:54 PM MANAGER ROUTE Inhaled Oxygen Concentration - - Weight 85.7 kg (189 lb) 06/07/2018 1:54 PM MANAGER ROUTE Height 157.5 cm (5' 2 ) 06/07/2018 1:54 PM MANAGER ROUTE Body Mass Index 34.57 06/07/2018 1:54 PM MANAGER ROUTE Plan of Treatment Health Maintenance Due Date [...] OR WO CAD Routine 05/27/2024 1:39 PM MANAGER ROUTE Encounter for screening mammogram for malignant neoplasm of breast from Last 3 Months Results * MAMMO 3D MONTEZ SCREEN BILAT W OR WO CAD (05/27/2024 1:39 PM MANAGER ROUTE) Anatomical Region Laterality Modality Breast Bilateral Mammography 05/27/2024 1:39 PM MANAGER ROUTE Impressions 05/27/2024 1:55 PM MANAGER ROUTE IMPRESSION: Stable bilateral screening mammogram. Recommend routine yearly followup. OVERALL FINAL ASSESSMENT: BI-RADS CATEGORY 2: Benign findings Narrative 05/27/2024 1:55 PM MANAGER ROUTE BILATERAL SCREENING DIGITAL MAMMOGRAM WITH 3D TOMOSYNTHESIS [...] from Last [address] [facility] [id number]
--- OUTSIDE RECORDS SUMMARY | 2024-07-29 02:50 | XMS_ITS | Encounter Summary ---
Author Organization [facility] Address [address] [place] [address] Care Team Providers Care Foil Stamp Operator Name Role Phone Unavailable Primary Care Provider Unavailabl e Encounter Details Date Type Department Care Team (Late st Contact Info) Description 07/21/2005 Outpatient Historical [facility] NOTE SPECIALIST - Medical [place] [facility] [address] [facility] [address] [address] John Lema MD NO ADDRESS ON FILE Social History Tobacco Use Types Packs/Day Years Used Date Smoking Tobacco: Never Assessed Comments Unknown Sex and Gender Information Value Date Recorded Sex Assigned at Not on file Legal Sex Female 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
--- OUTSIDE RECORDS SUMMARY | 2024-07-29 02:50 | XMS_ITS | Encounter Summary ---
Author Organization [employer] Address 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
[2024-07-29 06:38] LABS: Glucose Point of Care 160 mg/dl (65-105)
[2024-07-29] MEDS: KETOROLAC 15 MG/ML VIAL (*BKC) IV PUSH (06:49)
[2024-07-29] MEDS: ACETAMINOPHEN 500 MG TABLET 1000 MG PO (06:49)
[2024-07-29] MEDS: LACTATED RINGERS 1,000 ML 30 ML IV CONT ×2 (06:49→11:23)
--- NOTE | 2024-07-29 06:49 | P.PNAN_ITS ---
Anes - Initial Pre Proc Eval Procedure: Operation Date: 07/29/24 07:30 Proposed Procedures p Total Laparoscopic Hysterectomy with Bilateral Salpingectomy - García Lucas MD Date/Time: 07/29/24 06:49 Surgeon: García Lucas MD Pre Op Diagnosis: uterine leiomyoma Patient Data Age: 43 Gender: F Height: 1.57 m Weight: 98.2 kg Last Vital Signs Temp 97.8 F 07/29/24 06:46 Pulse 84 07/29/24 06:46 BP 147/91 H 07/29/24 06:46 Pulse Ox 98 07/29/24 06:46 O2 Del Method Room Air 07/29/24 06:46 Allergies Allergy/AdvReac Type Severity Reaction Status Date / Time No Known Allergies Allergy Verified 07/29/24 06:42 Home Medications ?Medication ?Instructions ?Recorded ?Confirmed ?Type amlodipine 10 mg tablet 10 mg PO DAILY 07/22/24 07/29/24 History aripiprazole 5 mg tablet 5 mg PO DAILY 07/22/24 07/29/24 History atorvastatin 20 mg tablet 20 mg PO DAILY 07/22/24 07/29/24 History ferrous sulfate 325 mg (65 mg 325 mg PO DAILY 07/22/24 07/29/24 History iron) tablet (Feosol) metformin 500 mg tablet 500 mg PO QPM 07/22/24 07/29/24 History montelukast 10 mg tablet 10 mg PO DAILY 07/22/24 07/29/24 History multivitamin (Daily Multi-Vitamin 1 tablet PO DAILY 07/22/24 07/29/24 History tablet) albuterol sulfate 2.5 mg/3 mL 2.5 mg inhalation Q6H PRN 07/29/24 07/29/24 History (0.083 %) solution for nebulization shortness of breath or wheezing Laboratory Tests 07/29/24 06:35 POC Capillary Glucose 160 H mg/dl (65-105) Patient hx anesthesia problems: none Family hx anesthesia problems: none Results Review: All pre-operative results and documents have been reviewed as part of the pre- operative evaluation. [facility] Social History Social History Smoking status: Never smoker Alcohol intake: current Substance use type: marijuana Other substance usage details: Daily Living arrangements: with family Spiritual care concerns: No Anes - Eval Final PreProcedure Day of Procedure 07/29/24 06:49 Patient weight: morbidly obese Heart: regular rate and rhythm Lungs: normal air movement Airway: Mallampati scale class III and special considerations (Missing L upper tooth. ) Neurological: alert and oriented Last oral intake: >/= 8 hours ASA classification: III Emergent: no Anesthetic plan: proceed Anesthesia type and monitoring: general ETT and standard monitoring Results Review: All pre-operative results and documents have been reviewed as part of the pre- operative evaluation. HTN, hyperlipidemia, DM fsbs 160, BMI 40, pt smokes marijuana daily. Reports recent inc use of albuterol due to dust/allergens, no illness. Informed Consent: The patient's anesthetic plan and its attendant risks and benefits were discussed with the patient/family/POA. Questions were solicited and answers provided to the satisfaction of the patient/family/POA.
--- NOTE | 2024-07-29 07:20 | PM.IMHP ---
H&P: HPI History of Present Illness Date/Time: 07/29/24 07:20 Chief Complaint: abnormal uterine bleeding Narrative: Patient is a 43 year old female who presents for total laparoscopic hysterectomy with bilateral salpingectomy and cystoscopy, indicated for abnormal uterine bleeding due to fibroids. She reports constant pelvic pain that worsens with menses. Pain is mostly on left lower quadrant. She also reports heavy periods, changing super tampon every hour. She had previously discussed medical vs surgical management and has decided that she would like to pursue definitive surgical management with hysterectomy. Pelvic US demonstrated enlarged uterus with multiple fibroids distorting the uterus. Risks and benefits were discussed with the patient who voices understanding. Review of Systems Review of Systems: All systems reviewed & are unremarkable except as noted in HPI and below PMFSH Social History Social History Smoking status: Never smoker Alcohol intake: current Substance use type: marijuana Other substance usage details: Daily Living arrangements: with family Spiritual care concerns: No Meds Home Medications and Allergies Home Medications ?Medication ?Instructions ?Recorded ?Confirmed ?Type amlodipine 10 mg tablet 10 mg PO DAILY 07/22/24 07/29/24 History aripiprazole 5 mg tablet 5 mg PO DAILY 07/22/24 07/29/24 History atorvastatin 20 mg tablet 20 mg PO DAILY 07/22/24 07/29/24 History ferrous sulfate 325 mg (65 mg 325 mg PO DAILY 07/22/24 07/29/24 History iron) tablet (Feosol) metformin 500 mg tablet 500 mg PO QPM 07/22/24 07/29/24 History montelukast 10 mg tablet 10 mg PO DAILY 07/22/24 07/29/24 History multivitamin (Daily Multi-Vitamin 1 tablet PO DAILY 07/22/24 07/29/24 History tablet) albuterol sulfate 2.5 mg/3 mL 2.5 mg inhalation Q6H PRN 07/29/24 07/29/24 History (0.083 %) solution for nebulization shortness of breath or wheezing Allergies Allergy/AdvReac Type Severity Reaction Status Date / Time No Known Allergies Allergy Verified 07/29/24 06:42 Vital Signs Vital Signs - 24 hr 07/29/24 06:46 Temperature 97.8 F Pulse Rate 84 Blood Pressure 147/91 H Pulse Oximetry 98 Oxygen Delivery Room Air Exam Const: General: comfortable and no acute distress HENMT: Mouth: Yes moist mucous membranes Eyes: General: appearance normal, both eyes and all related structures Resp: Effort & Inspection: normal respiratory effort Cardio: Rate: regular rate Skin: General skin exam: normal color Psych: Mental Status: mental status grossly normal Assessment and Plan Assessment and plan (1) Abnormal uterine bleeding due to leiomyoma of uterus: Code(s): N93.9 - Abnormal uterine and vaginal bleeding, unspecified; D25.9 - Leiomyoma of uterus, unspecified Status: Acute Assessment and Plan: - uterus enlarged with multiple leiomyoma - patient reports long history of heavy periods and pelvic pain - discussed medical management vs surgical management; patient declines medical management - discussed surgical options including myomectomy vs hysterectomy; discussed that given multiple fibroids and heterogenous uterus, myomectomy unlikely to be completely successful - recommend total laparoscopic hysterectomy with bilateral salpingectomy and cystoscopy - discussed risks of surgery, including bleeding, infection, and injury to adjacent structures - patient voices understanding, would like to proceed with surgery as discussed above
--- NOTE | 2024-07-29 07:25 | WPDHPUPDATE1 ---
History and Physical Update Update Date/Time: 07/29/24 07:25 History and Physical has been reviewed, including an updated exam of the patient. There are NO changes in the patient's condition. Risks, benefits, and alternatives have been discussed and questions answered. Patient agrees to proceed with procedure.
[2024-07-29] MEDS: ceFAZolin 2 GM/D5W 50 ML 2 GM/50 ML BAG IVPB (07:27)
--- NOTE | 2024-07-29 07:50 | P.OP_ITS ---
Procedure Note - Detailed Date of Procedure 07/29/24 Pre-op Diagnosis uterine leiomyoma Post-op Diagnosis Same Procedure Performed total laparoscopic hysterectomy and bilateral salpingectomy with cystoscopy Surgeon García Lucas MD Anesthesia General Indications abnormal uterine bleeding and pelvic pain Findings enlarged uterus with subserosal fundal fibroid; normal appearing ovaries bilaterally; fallopian tubes s/p partial salpingectomy; normal ureters Description of Procedure The patient was taken to the operating room with IV fluids infusing and placed in dorsal supine position. She was given general anesthesia by the anesthesiologist without difficulty. She was then repositioned in the dorsal lithotomy position and prepped and draped in the usual sterile manner. A Hernadez catheter was placed in the patient's bladder. The Dara uterine manipulator was place in the cervix and the vaginal balloon was insufflated. Legs were returned to physiologic position. An oral gastric tube was placed in the stomach to suction any contents. A small incision was made in the abdomen in the umbilicus. A 5mm trocar was placed into the umbilicus under direct vision. Intraabdominal placement was confirmed with an opening pressure of 7mm. After adequate visualization one 5 mm and one 10mm port was placed lateral to the inferior epigastric vessels on the left. A third 5mm port was placed in the right lower quadrant. The [place] Ligasure was used throughout the case. The bilateral ureters were visualized peristalsing on the pelvic sidewall. After evaluating the pathology the hysterectomy was begun by coagulating and cutting the uteroovarian pedicles and the round ligaments. The bladder flap was created the bladder from the lower uterine segment.The uterine vessels were skeletonized bilaterally, coagulated and then cut. The Ligasure L hook was used to create the colpotomy anteriorly and continued around the circumference of the cervix. The uterus was delivered vaginally. After adequate hemostasis the vaginal cuff was closed with V-loc suture in a running fashion. The abdominal cavity was lavaged with normal saline; there was no active bleeding. The remainder of the left fallopian tube was detached from the mesosalpinx using the Ligasure. The left tube was removed through the abdominal ports. The same procedure was performed on the right. The pedicles were noted to be hemostatic. Surgicel powder was placed along the vaginal cuff. Methylene blue dye was injected intravenously, cystoscopy was performed. Both ureters showed normal flow and there was no damage to the bladder. Instruments were removed under direct vision and as much CO2 was removed as possible. The abdomen was washed and the incision sites were closed with 4-0 Monocryl. The incisions were covered with skin glue. Patient tolerated the procedure well. Sponge, lap, needle, and instrument counts were correct. Patient was awakened and taken to the PACU in stable condition by the anesthesiologist. Estimated Blood Loss 500 Pathology Yes Complications No immediate complications Condition Stable Disposition Observation
[2024-07-29] MEDS: LIDO 1%/EPINEPHRINE 1:100,000 20 ML VIAL INFILTRATE (08:15)
[2024-07-29 11:56] LABS: Glucose Point of Care 185 mg/dl (65-105)
[2024-07-29] MEDS: ONDANSETRON INJ 4 MG/2 ML VIAL IV PUSH (12:57)
[2024-07-29] MEDS: oxyCODONE HCL (*CRX) 5 MG TAB IR PO (13:23)
--- NOTE | 2024-07-29 13:37 | SUR.PHASEII ---
[address] Lucas for a prescription for zofran at patient request.
== END 2024-07-29 14:02 | disposition home or self-care (01) ==
PROVIDERS: Visit Provider Obstetrics & Gynecology
PROC: 0UT9FZZ Resection of Uterus, Via Natural or Artificial Opening With Percutaneous Endoscopic Assistance (ICD-10-PCS; CPT 58571; principal; 2024-07-29 07:30)
DX: D25.2 Subserosal leiomyoma of uterus (principal); N80.03 Adenomyosis of the uterus; N93.9 Abnormal uterine and vaginal bleeding, unspecified; F12.90 Cannabis use, unspecified, uncomplicated; Z79.84 Long term (current) use of oral hypoglycemic drugs; E66.01 Morbid (severe) obesity due to excess calories; Z68.39 Body mass index [BMI] 39.0-39.9, adult
CPT/HCPCS: 58571; 82948; 88307; A9270; J0690; J1171; J1885; J2004; J2250; J2405; J2704; J3010; J7030; J7120; Q9968